=== PATIENT | female | born 1945 | race Caucasian/White ===

== ENCOUNTER 2020-12-31 14:53 | Outpatient (CLI) | payer MEDICARE, SELFPAY ==
--- NOTE | 2020-12-31 15:10 | XR_ITS ---
WS: [id number] SCREENING DEXA SCAN [email or web address] CLINICAL INFORMATION: OSTEOPOROSIS COMPARISON: None. FINDINGS: The L1-L4 bone mineral density measures . This corresponds to a T score score of and Z score of . Left femoral neck bone mineral density measures 0.567 g/cm2. This corresponds to a T score of -3.5 an d Z score of -1.1. Right femoral neck bone mineral density measures 0.550 g/cm2. This corresponds to a T score -3.6of an d Z score of -1.3. Mean femoral neck bone mineral density measures 0.559 g/cm2. This corresponds to a T score of -3.6 an d Z score of -1.2. XR/XR DEXA axial skeleton* [id number] IMPRESSION: Osteoporosis Patient's FRAX calculated 10 year probability for major osteoporotic fracture i s 59.4 % and osteoporotic hip fracture is 49.8%.
== END 2020-12-31 14:54 | disposition home or self-care (01) ==
LOC: RADWPI 15:05
PROVIDERS: PCP Physician Assistant; Visit Provider Physician Assistant
DX: M81.0 Age-related osteoporosis without current pathological fracture (principal)
CPT/HCPCS: 77080

== ENCOUNTER 2021-01-27 13:17 | Emergency (ER) | payer MEDICARE, SELFPAY ==
[2021-01-27 13:37] VITALS: BP 128/65; PULSE 68; RESP 17; TEMP 36.7; O2SAT 95; BMI 18.1
--- NOTE | 2021-01-27 13:40 | PC.NURSE ---
patient voices that she does not want an IV
--- NOTE | 2021-01-27 14:00 | CT_ITS ---
WS: [id number] CT ABDOMEN AND PELVIS NONCONTRAST HISTORY: possible stone/ has stent TECHNIQUE: Imaging performed through the abdomen and pelvis. Coronal and sagittal reformats are submi tted. All CT scans at [facility] use at least one of these dose optimization techniques: automated exposure control; mA and/or kV adjustment per patient size (includes targeted exams where d ose is matched to clinical indication); or iterative reconstruction. DLP: 418.56 mGy.cm COMPARISON: None available. Lower thorax: Minimal atelectasis at the lingula. Heart size is slightly enlarged. Small hiatal herni a. Liver: Normal size liver. No mass or bile duct dilatation. Gallbladder: Normal gallbladder. Pancreas: Atrophic pancreas. Extensive calcifications adjacent to the pancreas are within the splenic artery. Spleen: Normal. Adrenal glands: Normal. No mass. Right kidney: Mild atrophy of the RIGHT kidney with extensive vascular calcifications. No obstruction . Left kidney: Enlarged LEFT kidney with extensive vascular calcifications. Patient has a LEFT ureteral stent which does appear to be in good position. Despite the stent there is mild dilatation of the LE FT renal pelvis and LEFT ureter. Adjacent to the distal LEFT ureter is as 5 mm calcific density which is probably a stone in the adjacent ureter. Aorta: Extensive atherosclerotic plaque within the aorta and mesenteric arteries. There is evidence f or prior stenting of the aorta and iliac arteries. No free fluid, intraperitoneal air or significant lymphadenopathy. GI tract: Normal appendix. No GI tract obstruction or diverticulosis. Abdominal wall: Mild anasarca. Prior mesh placement in the anterior abdominal wall. Pelvis: Moderately distended urinary bladder. There is a LEFT ureteral stent coiled in the urinary bl adder. Osseous structures: T12 and L3 compression fractures without retropulsion. L3 compression fracture by 10% and T12 50%. CT/CT kidney stone [id number] IMPRESSION: 1. Mild perinephric stranding surrounding the LEFT kidney with a LEFT ureteral stent in place. There is very mild dilatation of the LEFT renal pelvis. 2. 15 mm calcification in the distal LEFT ureter adjacent to the stent. 3. Extensive vascular calcifications throughout the abdomen and pelvis. 4. Acute appearing T12 and L2 compression fractures without retropulsion.
--- NOTE | 2021-01-27 14:01 | XR_ITS ---
WS: [id number] Portable AP upright chest, 01/27/2021 Clinical Data: wheezing Comparison: None. Findings: No nodules, masses or effusions are seen. The heart is normal. The pulmonary vascularity is not increased. No pneumonia or pneumothorax is seen. Diaphragms are flattened. The aortic arch and d escending thoracic aorta show calcification and tortuosity. There is a left ureteral stent overlying the kidney. XR/XR chest 1V portable [id number] Impression: Atherosclerosis and hyperinflation.
--- NOTE | 2021-01-27 14:01 | ED_ITS ---
HPI - Female Genitourinary General: Chief complaint: Urogenital-Female Stated complaint: high b/p overly tired poss uti Time Seen by Provider: 01/27/21 13:51 History of Present Illness: HPI Narrative: Just moved here from [place]. Had a stent placed kidney due to stones. Stones have not been removed yet because her daughter brought here because she was septic at that time. She has seen a validation scientist recently been put on blood pressure medication. Has just been feeling weak, possible bladder infection. Is a smoker and has continued to smoke. She has a history of 5 stents in her lower extremities help with blood flow. History of recent T12 compression fracture. Waiting into urologist. History of anemia since sepsis. Patient become septic in October and was admitted to the hospital last when the stone was found. Patient had the T12 compression fracture and prior to that and been on oxycodone and hydrocodone. Urologist that saw her after hospitalization said he did not want to take the stone out since she would be coming down here. Wanted urologist in this area to provide further care. Patient just finished antibiotic which we will know the name for on the of this past month. MD elicited complaint: UTI and other (Weakness) Onset (ago): week(s) Associated symptoms: Reports no associated symptoms; Deny abdominal pain, headache(s) or nausea Review of Systems Const: Reports: other (Weakness); Denies: fever(s), chills or body aches Eyes: Denies: change in vision or blurry vision ENMT: Denies: throat pain or nasal congestion Card: Reports: other (Lower extremity edema); Denies: chest pain or dyspnea on exertion Resp: Reports: wheezing (Chronic); Denies: dyspnea, productive cough or non-productive cough GI: Denies: abdominal pain, nausea or vomiting : Reports: difficulty voiding Musc: Denies: extremity pain Skin/Breast: Denies: rash Neuro: Denies: headache(s) Psych: Denies: anxiety or depression Cisco/Lymph: Denies: easy bruising PFS ED PFSH: Medical History (Updated 01/27/21 @ 16:41 by HORACE Shaikh) Coronary artery disease Hyperlipidemia Hypertension Family History Other Hypertension Social History Smoking and tobacco status: current every day smoker (0.5 pack per day) cigarettes Physical Exam Const: COMMON NORMALS: no acute distress, average body habitus and patient oriented x3 HENMT: COMMON NORMALS: normocephalic HEAD & SCALP: normal to inspection and normocephalic FACE & SINUS: normal facial exam Eye: COMMON NORMALS: conjunctivae normal GENERAL EYE: appearance normal, both eyes and all related structures (Dark circles under both eyes) CONJUNCTIVA: Yes conjunctivae normal Neck/C-Spine: COMMON NORMALS: no JVD Chest: COMMONS NORMALS: normal inspection of the chest Resp: COMMON NORMALS: normal respiratory effort EFFORT & INSPECTION: Yes able to speak in complete sentences AUSCULTATION: wheezes throughout and diminished lung sounds diffuse Cardio: COMMON NORMALS: no JVD, regular rate and regular rhythm RATE: regular rate RHYTHM: regular rhythm OTHER: 2+ pitting edema pretibial and feet GI: COMMON NORMALS: Normal to inspection, nondistended, normoactive bowel sounds present Extremity: COMMON NORMALS: normal to inspection and full ROM Neuro: COMMON NORMALS: patient oriented x3 Skin: COMMON NORMALS: negative for turgor normal NARRATIVE SKIN EXAM: Poor turgor GENERAL SKIN EXAM: decreased turgor Course Vital Signs: Vital signs: Vital Signs Temperature 98.0 F 01/27/21 13:37 Pulse Rate 67 01/27/21 16:00 Respiratory Rate 16 01/27/21 16:00 Blood Pressure 163/65 01/27/21 16:00 Pulse Oximetry 95 01/27/21 16:00 MDM - Female [facility] Narrative: Medical decision making narrative: Spoke with Dr. Robert. Went over lab and radiology and patient signs symptoms and past history. Spoke with Dr. Villasenor through Dr. Toscano about radiology report. Called Dr. Solitario and spoke to him about patient's history symptoms and labs and he reviewed the CT report. We decided that patient could be treated as an outpatient basis due to not being in septic at this time no nausea mild fever chills. Have a patient take antibiotic after receiving antibiotic here in the ER and follow-up at [facility]. Patient agreeable to plan. I urged the daughter and her to follow-up here if any worsening symptoms before Dr. Solitario appointment. Encourage her to take medication as directed and drink plenty of fluids. And also try to sign release to get old records from previous hospital visit. Lab Data: Labs: Lab Results 01/27/21 01/27/21 01/27/21 Range/Units 14:05 14:05 14:42 WBC 8.6 (4.0-10.0) 10^3/ uL RBC 3.11 L (4.1-5.3) 10^6/u L Hgb 9.4 L (11.5-15.3) g/dL Hct 30.6 L (37.0-47.0) % MCV 98.4 (81-99) fl MCH 30.2 (28.0-34.0) pg MCHC 30.7 (30.0-36.0) g/dL RDW 15.3 H (12.1-15.1) % Plt Count 259 (130-400) 10^3/c mm MPV 8.8 (7.4-10.4) fL Neut % (Auto) 57.9 % Lymph % (Auto) 24.0 % Loving % (Auto) 7.2 % Eos % (Auto) 10.0 % Baso % (Auto) 0.6 % Neut # (Auto) 4.96 (1.8-7.7) 10^3/u L Lymph # (Auto) 2.1 (0.8-4.8) 10^3/u L Loving # (Auto) 0.6 (0.2-0.9) 10^3/u L Eos # (Auto) 0.9 H (0.0-0.8) 10^3/u L Baso # (Auto) 0.1 (0.0-0.1) 10^3/u L Nucleated RBC % (a uto) 0 % Nucleated RBCs # 0.0 /100WBC Sodium 133 L (136-145) mmol/L Potassium 4.6 (3.5-5.1) mmol/L Chloride 105 (98-107) mmol/L Carbon Dioxide 18 L (22-29) mmol/L Anion Gap 14.6 (5-19) BUN 14 (8-23) mg/dL Creatinine 0.8 (0.5-0.9) mg/dL GFR Calculation Not Reportable Glucose 195 H (65-115) mg/dL Calculated Osmolal ity 282 L (285-295) mOsm/k g Calcium 9.2 (8.5-10.5) mg/dL Urine Color Yellow (Yellow) Urine Appearance Hazy A (CLEAR) Urine pH 5 (5-7) Ur Specific Gravit y 1.015 (1.005-1.030) Urine Protein 1+ H (Negative) Urine Glucose (UA) Trace H (Normal) Urine Ketones Negative (Negative) Urine Blood 3+ H (Negative) Urine Nitrate Positive H (Negative) Urine Bilirubin Neg (Negative) Urine Urobilinogen Norm (Negative) mg/dL Ur Leukocyte Gillian ase 2+ H (Negative) Urine RBC >100 H (0-2) /hpf Urine WBC Too numerous to c nt H (0-5) /hpf Ur Squamous Epith Cells None (0-5) /hpf Amorphous Sediment Not Reportable Urine Bacteria 2+ H (NONE) /hpf Discharge Plan Discharge Patient Disposition: Home Clinical Impression: Left ureteral stone, PAD (peripheral artery disease), Acute UTI Anemia Qualifiers: Anemia type: unspecified type Qualified Code(s): D64.9 - Anemia, unspecified Compression fracture of T12 vertebra Qualifiers: Encounter type: sequela Qualified Code(s): S22.080S - Wedge compression fracture of T11-T12 vertebra, sequela Closed compression fracture of L2 vertebra Qualifiers: Encounter type: sequela Qualified Code(s): S32.020S - Wedge compression fracture of second lumbar vertebra, sequela Condition: Stable Prescriptions: New ferrous gluconate 324 mg (38 mg iron) tablet 324 mg PO DAILY Qty: 30 RF: 0 Bactrim DS 800-160 mg tablet 1 tab PO BID 7 Days Qty: 14 RF: 0 No Action trazodone 100 mg tablet 100 mg PO BEDTIME RF: 0 cholecalciferol (vitamin D3) 50 mcg (2,000 unit) capsule 50 mcg PO QAM RF: 0 atorvastatin 40 mg tablet 40 mg PO QAM RF: 0 mirtazapine 15 mg tablet 15 mg PO BEDTIME RF: 0 aspirin [Adult Aspirin Regimen] 81 mg tablet,delayed release (DR/EC) 81 mg PO QAM RF: 0 pantoprazole 40 mg tablet,delayed release (DR/EC) 40 mg PO DAILY RF: 0 pramipexole 0.25 mg tablet 0.25 mg PO TID RF: 0 magnesium chloride 64 mg tablet,delayed release (DR/EC) 64 mg PO QAM RF: 0 potassium chloride 10 mEq capsule, extended release 10 meq PO DAILY PRN (Reason: TAKES WITH LASIX) RF: 0 lisinopril 20 mg tablet 20 mg PO QAM RF: 0 omeprazole 40 mg Capsule,Delayed Release(Dr/Ec) 40 mg PO DAILY PRN (Reason: Acid Reflux) RF: 0 Lasix 20 mg Tablet 20 - 40 mg PO DAILY PRN (Reason: SWELLING) RF: 0 metoprolol succinate 25 mg tablet extended release 24 hr 25 mg PO QAM RF: 0 amlodipine 5 mg tablet 5 mg PO QAM RF: 0 Discharge Orders: Discharge ED (Routine); Ordered 01/27/21 Ordered By: Antwan Larios Referrals: Marlyn Fisher PA [Primary Care Provider] - Discharge Diet: Usual diet Discharge Activity: Increase activity as tolerated Patient Instructions: Kidney Stones (ED), Urinary Tract Infection in Women (ED), Vertebral Compression Fracture (ED) Activity Restrictions/Additional Instructions: Follow-up with medical provider as directed. Take medications as prescribed. Return to the ER or your medical provider if condition worsens. Please read and understand discharge instructions. If any questions ask please. Establish primary care provider here in town. Make sure you drink plenty of fluids. Take laxative and fiber along with your iron. Hospital will contact you with an appointment for Dr. Solitario's office to [facility] next week if you do not hear back from the hospital by Monday please call Dr. Solitario's office make sure you get appointment. If worsening symptoms please return here Coding Level of Care Code ED Crime Scene Technician for Izabela Fwd Exam Comprehensive
[2021-01-27 14:14] LABS: Basophils # 0.1 10^3/uL (0.0-0.1); Basophils % 0.6 %; Eosinophils # 0.9 10^3/uL (0.0-0.8); Hematocrit 30.6 % (37.0-47.0); Hemoglobin 9.4 g/dL (11.5-15.3); Lymphocytes # 2.1 10^3/uL (0.8-4.8); Mean Corpuscular HGB Conc 30.7 g/dL (30.0-36.0); Mean Corpuscular Hemoglobin 30.2 pg (28.0-34.0); Mean Corpuscular Volume 98.4 fl (81-99); Mean Platelet Volume 8.8 fL (7.4-10.4); Monocytes # 0.6 10^3/uL (0.2-0.9); Monocytes % 7.2 %; Neutrophils # 4.96 10^3/uL (1.8-7.7); Neutrophils % 57.9 %; Nucleated Red Blood Cells % 0 %; Platelet Count 259 10^3/cmm (130-400); Red Blood Count 3.11 10^6/uL (4.1-5.3); Red Cell Distribution Width 15.3 % (12.1-15.1); White Blood Count 8.6 10^3/uL (4.0-10.0)
--- NOTE | 2021-01-27 14:45 | PC.PHAR ---
PT STATES SHE AND HER DAUGHTER TAKE CARE OF HER MEDICATIONS-PT HAS A RX FOR LISINOPRIL 40MG DAILY WRITTEN ON 01/12/[address] ZAMORA PT STATES SHE IS ONLY TAKING 20MG DAILY-PT STATES SHE HAS LASIX AND KCL THAT SHE TAKES PRN BUT HASNT TAKEN FOR A WHILE-RX WRITTEN ON 12/23/20 90DS. FOR PANTOPRAZOLE 40MG DAILY PT STATES SHE TAKES OMEPRAZOLE 40MG DAILY PRN STATES ITS AN OLD RX FROM [place]
[2021-01-27 14:46] VITALS: BP 166/61; PULSE 68; RESP 18; O2SAT 98
[2021-01-27 14:53] LABS: Anion Gap 14.6 (5-19); Blood Urea Nitrogen 14 mg/dL (8-23); Calcium 9.2 mg/dL (8.5-10.5); Carbon Dioxide 18 mmol/L (22-29); Chloride 105 mmol/L (98-107); Glucose 195 mg/dL (65-115); Osmolality Calculated 282 mOsm/kg (285-295); Potassium 4.6 mmol/L (3.5-5.1); Sodium 133 mmol/L (136-145)
[2021-01-27 15:48] LABS: Add Urine Microscopic? YES; Bilirubin Urine Neg (Negative); Blood Urine 3+ (Negative); Glucose Urine UA Trace (Normal); Ketones Urine Negative (Negative); Leukocyte Esterase Urine 2+ (Negative); Nitrate Urine Positive (Negative); Protein Urine 1+ (Negative); Specific Gravity, Urine 1.015 (1.005-1.030); Urine Appearance Hazy (CLEAR); Urine Color Yellow (Yellow); Urobilinogen Urine Norm (Negative); pH Urine 5 (5-7)
[2021-01-27 15:51] LABS: Add Urine Culture? Yes; Bacteria Urine 2+ /hpf; RBC Urine >100 /hpf (0-2); WBC Urine TOO NUMEROUS TO CNT /hpf (0-5)
[2021-01-27 16:00] VITALS: BP 163/65; PULSE 67; RESP 16; O2SAT 95
[2021-01-27] MEDS: cefTRIAXone 1,000 MG in lidocaine 1% 2.1 ML 1 MG IM (16:53)
[2021-01-27 17:32] VITALS: BP 160/61; PULSE 68; O2SAT 92
--- NOTE | 2021-02-03 11:26 | DCPLANNER ---
infrastructure manager had message to schedule a follow up appointment for patient with Dr. Solitario. infrastructure manager called the office of Dr. Solitario, spoke with Yvette, gave clinic patients information. infrastructure manager was told that patients information would be printed and reviewed. Clinic will call patient with appointment information.
--- NOTE | 2021-02-05 15:03 | DCPLANNER ---
Patient had a follow up appointment scheduled for 02.04.[address] Solitario - patient did attend appointment.
== END 2021-01-27 17:33 | disposition home or self-care (01) ==
PROVIDERS: Emergency Provider Nurse Practitioner Family; PCP Physician Assistant
DX: N39.0 Urinary tract infection, site not specified (principal); N20.1 Calculus of ureter; D64.9 Anemia, unspecified; I73.9 Peripheral vascular disease, unspecified; S22.080A Wedge compression fracture of T11-T12 vertebra, initial encounter for closed fracture; S32.020A Wedge compression fracture of second lumbar vertebra, initial encounter for closed fracture; Z79.82 Long term (current) use of aspirin; I25.10 Atherosclerotic heart disease of native coronary artery without angina pectoris; E78.5 Hyperlipidemia, unspecified; I10 Essential (primary) hypertension; F17.210 Nicotine dependence, cigarettes, uncomplicated; X58.XXXA Exposure to other specified factors, initial encounter
CPT/HCPCS: 71045; 74176; 80048; 81001; 85025; 87077; 87086; 87186; 96365; 96372; 99284; J0696

== ENCOUNTER 2021-02-04 07:13 | Outpatient (CLI) | payer MEDICARE, SELFPAY ==
--- NOTE | 2021-02-04 07:00 | XR_ITS ---
WS: [id number] KUB, AP view, 02/04/2021 Clinical Data: URETERAL STONE Comparison: CT abdomen and pelvis, 01/27/2021. Findings: There is a left ureteral stent in good position. There is a possible left UVJ calcification adjacent to the distal stent.There are calcifications overlying the left kidney. An aorto iliofemoral stent is in position. There are numerous surgical clips in the central abdomen. There is fecal material throu ghout the colon. XR/XR KUB [id number] Impression: 1. Left ureteral stent with probable distal left UVJ calculus adjacent to the s tent. 2. Numerous calcifications overlie left kidney. 3. An aortofemoral stent graft is in position.
== END 2021-02-04 07:14 | disposition home or self-care (01) ==
PROVIDERS: PCP Physician Assistant; Visit Provider Urology
DX: N20.1 Calculus of ureter (principal)
CPT/HCPCS: 74018; 81003

== ENCOUNTER → 2021-02-18 11:55 | Outpatient (BNVA) | payer MEDICARE, SELFPAY | PROVIDERS: PCP Physician Assistant; Visit Provider Urology | DX: N39.0 Urinary tract infection, site not specified (principal); Z96.0 Presence of urogenital implants; Z20.822 Contact with and (suspected) exposure to COVID-19 | CPT/HCPCS: 81003; 87077; 87086; 87184; 87635 ==

== ENCOUNTER 2021-02-25 12:54 | Day surgery (SDC) | payer MEDICARE, SELFPAY ==
[2021-02-24 12:03] VITALS: BMI 17.7
[2021-02-25] VITALS (8 sets, daily range): BP systolic 120–164; BP diastolic 44–80; PULSE 60–77; RESP 15–19; TEMP 36.5–36.6; O2SAT 91–98
--- NOTE | 2021-02-25 | SCC_ITS ---
Procedure Done: 1. Cystoscopy, removal of left ureter stent 2. Left ureteroscopy, laser lithotripsy, no stent replacement 43.9 seconds of fluoroscopic guidance, for a cumulative dose of 4.71 mGy, was provided to Dr. Solitario by the radiology department. C-arm images of the abdomen were saved for the patient's permanent record. [facility]
--- NOTE | 2021-02-25 12:50 | XR_ITS ---
WS: [id number] Exam: XR KUB [id number] Date/Time of Exam: 02/25/2021 12:50 PM Reason For Exam: Preop left ureteroscopy Compared to previous study 02/04/2021. No bowel obstruction or free air. A left ureteral stent is in place. The superior aspect of the stent appears to be in the region of the left kidney however the lower segment of the stent is out of the [id number]-vlle. A bifurcated lower abdominal aortic graft is in place. Signs of previous ventral herni a repair. No sign of organ enlargement. Nonspecific abdominal calcifications seen. XR/XR KUB [id number] IMPRESSION: 1. Left ureteral stent in place as indicated above. 2. Postoperative changes of the abdomen. No acute abdominal finding.
[2021-02-25] MEDS: sodium chloride 0.9% 1,000 ML 30 ML IV (13:45)
[2021-02-25 14:15] LABS: Anion Gap 14.1 (5-19); Blood Urea Nitrogen 15 mg/dL (8-23); Calcium 9.6 mg/dL (8.5-10.5); Carbon Dioxide 21 mmol/L (22-29); Chloride 102 mmol/L (98-107); Creatinine Clr Calc Pharmacy 36.2264; Glucose 91 mg/dL (65-115); Osmolality Calculated 274 mOsm/kg (285-295); Potassium 5.1 mmol/L (3.5-5.1); Sodium 132 mmol/L (136-145)
--- NOTE | 2021-02-25 14:41 | ANES.PREANE2 ---
Pre-Anesthetic Assessment Pre-Anesthetic Assessment: Height/Weight: Height 1.45 m Weight 37.195 kg Preop Diagnosis: Retained ureteral stent, left ureteral stone Proposed Procedure: Operation Date: 02/25/21 14:35 Proposed Procedures p Cystoscopy 41390 [id number] 38247 N20.1(Not Applicable) - MD homer Talamantes Ureteral Stent Removal(Not Applicable) - MD homer Talamantes Retrograde Pyelogram(Not Applicable) - MD homer Talamantes Ureteroscopy(Not Applicable) - MD homer Talamantes Laser Lithotripsy(Not Applicable) - MD homer Talamantes Ureteral Stent Placement(Not Applicable) - Finn Solitario MD Was Beta Christine taken within 24 hours: Yes Was Clonidine taken within 24 hours: N/A Last intake: Intake Last Liquid Date 02/24/21 Last Liquid Time 08:50 Last Solid Date 02/24/21 Last Solid Time 23:00 Social: Social History: No alcohol and No tobacco Exam: Pre-Anes Outpt Exam: alert, oriented x 3 and clear to auscultation bilaterally Airway: Submandibular: WNL Cervical ROM: WNL MP: 1 History/ROS: No significant complaints Pulmonary: Pulmonary: None reported CV/HEM: CV/HEM: CAD, HTN and [place] Comments: Stents placed approx 6 years ago, unknown how many or which arteries : Comments: Renal Stones/ current ureteral stent Hepatic: Hepatic: None reported GI: GI: None reported Metabolic: Metabolic: Hyperlipidemia Musc/skel: Musc/skel: None reported Neuropsych: Neuropsych: None reported Anesthetic Plan: ASA status: 2 Anesthesia: Choice PFSH Anesthesia PFSH: Medical History (Updated 02/19/21 @ 05:21 by Finn Solitario MD) Coronary artery disease History of abdominal hernia Hyperlipidemia Hypertension Urolithiasis UTI (urinary tract infection) Surgical History (Updated 02/19/21 @ 05:21 by Finn Solitario MD) Hx of appendectomy Hx of endarterectomy Hx of heart artery stent Hx of hysterectomy Family History Mother , IN HER 90'S. LYMPH NODE CANCER Diabetes Cancer Other CAD (coronary artery disease) Hypertension Social History Alcohol intake: former Marital status: Current occupational status: retired History of recent travel: No Data Anesthesia CBC & Chem 7: 02/25/21 13:45 Other Labs: Laboratory Results - last 48 hr 02/25/21 13:45 Sodium 132 L Potassium 5.1 Chloride 102 Carbon Dioxide 21 L Anion Gap 14.1 BUN 15 Creatinine 0.8 GFR Calculation Not Reportable Glucose 91 Calculated Osmolality 274 L Calcium 9.6 Cardiac Studies: No Data to Display
--- NOTE | 2021-02-25 14:52 | W.PM.OPSUD ---
Surgery/Procedure H&P Update DATE OF PROCEDURE: February 25, 2021 DATE H&P PERFORMED: 02/18/21 H&P UPDATE INFORMATION: I have reviewed H&P completed within last 30 days, I have examined patient prior to procedure, No changes to prior documentation and H&P is in [facility] EMR on date indicated PREOP DIAGNOSIS: Retained ureteral stent, left ureteral stone PLANNED PROCEDURE: Operation Date: 02/25/21 14:35 Proposed Procedures p Cystoscopy 51615 [id number] N20.1(Not Applicable) - Finn Solitario MD s Ureteral Stent Removal(Not Applicable) - MD homer Talamantes Retrograde Pyelogram(Not Applicable) - MD homer Talamantes Ureteroscopy(Not Applicable) - MD homer Talamantes Laser Lithotripsy(Not Applicable) - MD homer Talamantes Ureteral Stent Placement(Not Applicable) - Finn Solitario MD
[2021-02-25] MEDS: piperacillin-tazobactam 3.375 GM in sodium chloride 0.9% (plus) 50 ML IV (14:55)
--- NOTE | 2021-02-25 15:18 | SC_ITS ---
WS: [id number] Exam: C-arm FL for Urology Date/Time of Exam: 02/25/2021 3:18 PM Reason For Exam: SURGERY A single intraoperative AP C-arm image of the upper abdomen is submitted for evaluation. A left-sided pigtail ureteral catheter is visualized. A second opaque line also courses along the route of the le ft ureter and may represent a guidewire or ureteroscope. A bifurcated abdominal aortic graft is noted . There also appears to be mesh in the abdomen which may be secondary to previous hernia repair.
--- NOTE | 2021-02-25 15:44 | PM.OP ---
Operative Report Date of procedure: February 25, 2021 Pre-op Diagnosis: Retained ureteral stent, left ureteral stone Post-op diagnosis: same Procedure Done: 1. Cystoscopy, removal of left ureter stent 2. Left ureteroscopy, laser lithotripsy, no stent replacement Specimens removed/disposition: Stone fragments Pathology: Stone fragments Surgeon: Kassi Anesthesia: General Estimated blood loss: Minimal Urine output: Not measured Complications: None Findings: 1. Stent removed without difficulty 2. Stone was located about 3 cm to 4 cm above the left ureteral orifice, well fragmented with the laser, and multiple small fragments removed. 3. The condition of the ureter was good, nicely dilated, and therefore no stent was left indwelling. Condition: stable Disposition: PACU Brief History: Zoe is a very pleasant 75-year-old white female recently moved from [place] to this area to join her family. Shortly before her departure and I think November she was diagnosed with obstructive pyelonephritis and sepsis and underwent an emergency stenting the bypass of a fairly large left distal ureteral stone. She has recovered well from that procedure and infection is being admitted now to outpatient surgery for definitive treatment of the stone and stent removal if possible. Procedure: After routine preoperative evaluation examination and obtaining of informed consent she was taken to the operating suite on 02/25/2021 where general anesthesia was administered without difficulty after appropriate timeout was performed, SCDs confirmed to be functioning, preoperative antibiotics administered, beta-mike protocol confirmed. Prepped and draped in the usual sterile fashion in dorsolithotomy position paying careful attention to avoiding pressure points. 21 Ivorian cystoscope with 30 degree lens was introduced into the urethral meatus and advanced into the bladder without difficulty. The bladder was systematically examined. There was minimal inflammatory changes related to the stent which was in the expected position with minimal encrustation. Flexible tip guidewire was then easily advanced up the left ureter bypassing the area of the expected stone and curling in the upper pole calyx. The stent was then grasped with grasping forceps and withdrawn without difficulty. The proximal curl opened easily. The wire was secured to the drapes as a safety wire and a 7 Ivorian offset semirigid ureteroscope was advanced without difficulty up the left ureter all the way up to the renal pelvis. The ureter was nicely dilated. There was a stone in the expected position of the distal ureter but no other findings of concern. The stone was then fragmented with a 365 ?m thulium superpulse laser fiber using the dusting technique. A parachute basket was utilized to remove the larger fragments. There remained some very minimal sand. The ureter was carefully inspected again after several passages of the basket and was intact with no significant trauma and because of the adequate dilation post stenting previously it was decided to not leave a stent in. The bladder was drained and the procedure was completed. She tolerated the procedure well without complications and was awakened in the operating room and returned to the recovery room. PLANS: 1. Anticipate discharge from outpatient surgery 2. Follow-up in 3 months with KUB 3. Complete antibiotics
== END 2021-02-25 17:00 | disposition home or self-care (01) ==
PROVIDERS: PCP Physician Assistant; Visit Provider Urology
PROC: 0TJB8ZZ Inspection of Bladder, Via Natural or Artificial Opening Endoscopic (ICD-10-PCS; CPT 52000; principal; 2021-02-25 14:30)
PROC: (CPT 52310; 2021-02-25 14:30)
PROC: 0TJ98ZZ Inspection of Ureter, Via Natural or Artificial Opening Endoscopic (ICD-10-PCS; CPT 52351; 2021-02-25 14:30)
PROC: (CPT 52352; 2021-02-25 14:30)
DX: N20.1 Calculus of ureter (principal); Z96.0 Presence of urogenital implants; I25.10 Atherosclerotic heart disease of native coronary artery without angina pectoris; I10 Essential (primary) hypertension; I25.2 Old myocardial infarction; Z95.5 Presence of coronary angioplasty implant and graft; E78.5 Hyperlipidemia, unspecified; Z79.82 Long term (current) use of aspirin; N39.0 Urinary tract infection, site not specified
CPT/HCPCS: 52352; 74018; 76000; 80048; 82365; 88300; J1100; J2405; J2543; J2704; J2710; J3490; J7030

== ENCOUNTER 2021-04-28 13:30 | Outpatient (CLI) | payer MEDICARE, SELFPAY ==
[2021-04-28 14:22] VITALS: BP 109/64; PULSE 68; RESP 18; TEMP 36.6; O2SAT 96
[2021-04-28] MEDS: romosozumab-aqqg 210 mg/2.34 mL syr SUBCUT (14:28)
[2021-04-28 14:45] VITALS: BP 111/74; PULSE 71; RESP 18; TEMP 36.8; O2SAT 95
== END 2021-04-28 13:31 | disposition home or self-care (01) ==
LOC: ONCMED 13:33
PROVIDERS: PCP Physician Assistant; Referring Provider Physician Assistant; Visit Provider Physician Assistant
DX: M81.0 Age-related osteoporosis without current pathological fracture (principal)
CPT/HCPCS: 96372; J3590

== ENCOUNTER 2021-06-01 08:23 | Outpatient (CLI) | payer MEDICARE, SELFPAY ==
--- NOTE | 2021-06-01 08:30 | XRR_ITS ---
PROCEDURE INFORMATION: Exam: XR Abdomen Exam date and time: 06/01/2021 8:30 AM Age: 75 years old Clinical indication: Condition or disease; Kidney or ureter condition; Calculus (stone) in kidney; Additional info: Urolithiasis TECHNIQUE: Imaging protocol: XR of the abdomen. Views: Frontal supine view of the abdomen. 1 View. COMPARISON: CR XR KUB [id number] 02/25/2021 1:10 PM FINDINGS: Tubes, catheters and devices: Interval removal of left ureteral stent. Gastrointestinal tract: No bowel dilation. Moderate colonic stool burden. Organs: No evident renal stones, but limited due to overlying bowel gas and stool. Vasculature: Bifurcated aorto bi-iliac stent noted. Bones/joints: Unremarkable. Soft tissues: Sequela of ventral hernia repair noted. XR/XR KUB [id number] IMPRESSION: No evident renal stones, but limited by overlying bowel gas and stool. Interval removal left ureteral stent.
== END 2021-06-01 08:24 | disposition home or self-care (01) ==
LOC: RAD 08:27
PROVIDERS: PCP Physician Assistant; Visit Provider Urology
DX: Z46.6 Encounter for fitting and adjustment of urinary device (principal); N20.9 Urinary calculus, unspecified
CPT/HCPCS: 74018; 81003

== ENCOUNTER 2021-06-07 13:13 | Outpatient (CLI) | payer MEDICARE, SELFPAY ==
[2021-06-07 14:01] LABS: Albumin Level 3.3 g/dL (3.5-5.2); Calcium 9.4 mg/dL (8.5-10.5)
[2021-06-07 14:17] LABS: 25 Hydroxy Vitamin D 58 ng/mL (30-100)
== END 2021-06-07 13:14 | disposition home or self-care (01) ==
PROVIDERS: PCP Physician Assistant; Visit Provider Physician Assistant
DX: M81.0 Age-related osteoporosis without current pathological fracture (principal); E55.9 Vitamin D deficiency, unspecified
CPT/HCPCS: 36415; 82040; 82306; 82310; 82565

== ENCOUNTER 2021-06-08 13:11 | Outpatient (CLI) | payer MEDICARE, SELFPAY ==
[2021-06-08 13:32] VITALS: BP 137/61; PULSE 66; RESP 18; TEMP 37.3; O2SAT 97
[2021-06-08] MEDS: romosozumab-aqqg 210 mg/2.34 mL syr SUBCUT (13:45)
[2021-06-08 13:59] VITALS: BP 129/58; PULSE 65; RESP 18; TEMP 36.9; O2SAT 99
== END 2021-06-08 13:12 | disposition home or self-care (01) ==
LOC: ONCMED 13:18
PROVIDERS: PCP Physician Assistant; Visit Provider Internal Medicine Medical Oncology
DX: M81.0 Age-related osteoporosis without current pathological fracture (principal)
CPT/HCPCS: 96372; J3590

== ENCOUNTER 2021-07-05 06:00 | Outpatient (RCR) | payer MEDICARE, SELFPAY | END 2021-07-26 23:59 | disposition home or self-care (01) | LOC: SPT 06:00 | PROVIDERS: PCP Physician Assistant; Referring Provider General Practice; Visit Provider General Practice | DX: G89.4 Chronic pain syndrome (principal); M62.81 Muscle weakness (generalized) | CPT/HCPCS: 97110; 97161 ==

== ENCOUNTER 2021-07-06 13:58 | Outpatient (CLI) | payer MEDICARE, SELFPAY ==
[2021-07-06 14:14] VITALS: BP 109/62; PULSE 74; RESP 18; TEMP 36.5; O2SAT 98
[2021-07-06] MEDS: romosozumab-aqqg 210 mg/2.34 mL syr SUBCUT (14:18)
[2021-07-06 14:31] VITALS: BP 129/72; PULSE 73; RESP 18; TEMP 36.7; O2SAT 96
== END 2021-07-06 13:59 | disposition home or self-care (01) ==
LOC: ONCMED 14:03
PROVIDERS: PCP Physician Assistant; Referring Provider Physician Assistant; Visit Provider Physician Assistant
DX: M81.0 Age-related osteoporosis without current pathological fracture (principal); Z79.899 Other long term (current) drug therapy
CPT/HCPCS: 96372; J3590

== ENCOUNTER 2021-07-27 06:00 | Outpatient (RCR) | payer MEDICARE, SELFPAY | END 2021-08-19 23:59 | disposition home or self-care (01) | LOC: SPT 06:00 | PROVIDERS: PCP Physician Assistant; Referring Provider General Practice; Visit Provider General Practice | DX: G89.4 Chronic pain syndrome (principal); M51.36 Other intervertebral disc degeneration, lumbar region; M46.1 Sacroiliitis, not elsewhere classified | CPT/HCPCS: 97110; 97116 ==

== ENCOUNTER 2021-08-03 14:05 | Outpatient (CLI) | payer MEDICARE, SELFPAY ==
[2021-08-03 14:34] VITALS: BP 163/65; PULSE 82; RESP 18; TEMP 36.8; O2SAT 95
[2021-08-03] MEDS: romosozumab-aqqg 210 mg/2.34 mL syr SUBCUT (14:38)
== END 2021-08-03 14:06 | disposition home or self-care (01) ==
PROVIDERS: PCP Physician Assistant; Referring Provider Physician Assistant; Visit Provider Internal Medicine Medical Oncology
DX: M81.0 Age-related osteoporosis without current pathological fracture (principal); Z79.899 Other long term (current) drug therapy
CPT/HCPCS: 96372; J3590

== ENCOUNTER 2021-08-25 08:24 | Outpatient (CLI) | payer MEDICARE, SELFPAY ==
--- NOTE | 2021-08-25 08:45 | USCV_ITS ---
Elder Zoe Age: 75 Gender: F : 1945 Exam Date: 08/25/2021 09:10 Ordering Phys: Tony Rebolledo M.D ([email or web address]) Technologist: Jill Stephens [place] [facility] [place]: Occlusion and stenosis of bilateral carotid arteries Risk Factors: Previous Vascular Surgery: R CEA Right Brachial BP: / Left Brachial BP: / Right Left Velocity (cm/s) Spectral Plaque Velocity (cm/s) Spectral Plaque Syst/Diast Broadening Syst/Diast Broadening 62.90/ 8.50 Prox CCA 77.20 / 15.40 83.10/ 10.10 Mid CCA 81.60 / 11.00 96.60/ 15.30 Distal CCA 78.30 / 7.70 36.60/ 6.90 Prox ICA 183.60/ 29.35 88.50/ 17.50 Mid ICA 200.70/ 45.40 49.80/ 11.50 Distal ICA 179.80/ 26.50 143.10 ECA 165.50 1.06 ICA/CCA 2.46 Antegrade Vertebral Antegrade 80.30/ 16.20 cm/s 50.70/ 13.20 cm/s Bi Subclavian Bi 107.6 160.1 0 0 CONCLUSIONS Right ICA stenosis <50%. Prior Right CEA, no recurrent stenosis. Moderate atheromatous plaque right carotid bulb/ICA and CCA. Left ICA stenosis 50-69%. Moderate atheromatous plaque left carotid bulb/ICA and CCA Normal antegrade Doppler flow noted in the right vertebral artery. Normal antegrade Doppler flow noted in the left vertebral artery. Robel Jauregui MD (Electronically Signed) Final Date: 25 August 2021 10:26 S
--- NOTE | 2021-08-25 09:30 | USCV_ITS ---
Elder Zoe Age: 75 Gender: F : 1945 Exam Date: 08/25/2021 08:40 Ordering Phys: Tony Rebolledo M.D ([email or web address]) Technologist: Jill Stephens Exam Location: [facility] – [place] Indication: Cardiac Murmur BP: 144 / 58 HR: 60 Rhythm: Sinus Technical Quality: Adequate MEASUREMENTS (Male / Female) Normal Values 2D ECHO LV Diastolic Diameter PLAX 4.5 cm 4.2 - 5.9 / 3.9 - 5.3 cm LV Systolic Diameter PLAX 2.9 cm IVS Diastolic Thickness 0.8 cm 0.6 - 1.0 / 0.6 - 0.9 cm IVS Systolic Thickness 1.6 cm LVPW Diastolic Thickness 1.3 cm 0.6 - 1.0 / 0.6 - 0.9 cm LVPW Systolic Thickness 1.7 cm RV Chamber Size 2.6 cm LVOT Diameter 2.0 cm LV Ejection Fraction 2D Teich 64.0 % LA Diameter 3.1 cm LA Width 3.3 cm LA Height 3.6 cm RA Width 2.8 cm RA Height 3.1 cm Aorta at Sinotubular Diameter 2.0 cm M-MODE Aortic Annulus Diameter 2.7 cm LA Ao Ratio MM 1.1 MV E Point Septal Separation 0.6 cm DOPPLER AV Peak Velocity 131.0 cm/s LVOT Peak Velocity 87.0 cm/s AV Area Cont Eq vti 1.4 cm squared AV Area Cont Eq pk 2.1 cm squared MV Area PHT 3.1 cm squared Mitral E to A Ratio 0.7 MV E' Velocity 38.5 cm/s Mitral E to MV E' Ratio 5.0 Mitral E to LV E' Lateral Ratio 7.0 Mitral E to LV E' Septal Ratio 3.9 TR Peak Velocity 248.0 cm/s TR Peak Gradient 24.6 mmHg TV Peak E Velocity 55.0 cm/s Right Atrial Pressure 3.0 mmHg Pulmonary Artery Systolic Pressu 27.6 mmHg PV Peak Velocity 87.0 cm/s RV Acceleration Time 0.1 s RV Ejection Time 0.2 s RV AcT/ET 0.4 FINDINGS Left Ventricle Normal left ventricular size. LV systolic function is normal with EF of 55-60%. No regional wall motion abnormalities. Grade 1 diastolic dysfunction Right Ventricle The right ventricle is normal in size and function. Right Atrium The right atrium is normal in size. Left Atrium The left atrium is normal in size. Mitral Valve Moderately thickened mitral valve. There is no mitral regurgitation. Aortic Valve Aortic valve is thickened and calcified with no stenosis. There is mild aortic regurgitation. Tricuspid Valve Structurally normal tricuspid valve without significant stenosis or regurgitation. Insufficient TR jet to calculate RVSP Pulmonic Valve Structurally normal pulmonic valve without significant stenosis. There is no pulmonic regurgitation. Pericardium Normal pericardium without effusion. Aorta Normal ascending aorta dimension. CONCLUSIONS LV systolic function is normal with EF of 55-60% Grade 1 diastolic dysfunction Moderately thickened mitral valve. Aortic valve is thickened and calcified with no stenosis. There is mild aortic regurgitation. No comparison studies are available Tony Rebolledo MD (Electronically Signed) Final Date: 27 August 2021 14:41 S
== END 2021-08-25 08:25 | disposition home or self-care (01) ==
LOC: RAD 08:27
PROVIDERS: PCP Physician Assistant; Visit Provider Internal Medicine
DX: I65.23 Occlusion and stenosis of bilateral carotid arteries (principal); Z98.890 Other specified postprocedural states; R01.1 Cardiac murmur, unspecified; I08.0 Rheumatic disorders of both mitral and aortic valves
CPT/HCPCS: 93306; 93880

== ENCOUNTER 2021-08-31 13:45 | Outpatient (CLI) | payer MEDICARE, SELFPAY ==
[2021-08-31 14:07] VITALS: BP 150/66; PULSE 64; RESP 18; TEMP 36.7; O2SAT 96
[2021-08-31] MEDS: romosozumab-aqqg 210 mg/2.34 mL syr SUBCUT (14:15)
[2021-08-31 14:27] VITALS: BP 154/76; PULSE 63; RESP 18; TEMP 36.8; O2SAT 96
== END 2021-08-31 13:46 | disposition home or self-care (01) ==
LOC: ONCMED 13:49
PROVIDERS: PCP Physician Assistant; Visit Provider Physician Assistant
DX: M81.0 Age-related osteoporosis without current pathological fracture (principal)
CPT/HCPCS: 96372; J3590

== ENCOUNTER 2021-09-28 14:02 | Outpatient (CLI) | payer MEDICARE, SELFPAY ==
[2021-09-28 14:16] VITALS: BP 106/61; PULSE 63; RESP 18; TEMP 36.8; O2SAT 94
[2021-09-28] MEDS: romosozumab-aqqg 210 mg/2.34 mL syr SUBCUT (14:27)
[2021-09-28 14:43] VITALS: BP 118/57; PULSE 63; RESP 18; TEMP 36.5; O2SAT 95
== END 2021-09-28 14:03 | disposition home or self-care (01) ==
PROVIDERS: PCP Physician Assistant; Referring Provider Physician Assistant; Visit Provider Physician Assistant
DX: M81.0 Age-related osteoporosis without current pathological fracture (principal)
CPT/HCPCS: 96372; J3590

== ENCOUNTER 2021-10-28 13:46 | Outpatient (CLI) | payer MEDICARE, SELFPAY ==
[2021-10-28 14:14] VITALS: BP 105/61; PULSE 58; RESP 18; TEMP 36.6; O2SAT 92
[2021-10-28] MEDS: romosozumab-aqqg 210 mg/2.34 mL syr SUBCUT (14:27)
[2021-10-28 14:35] VITALS: BP 102/60; PULSE 58; RESP 18; TEMP 36.4; O2SAT 92
== END 2021-10-28 13:47 | disposition home or self-care (01) ==
LOC: ONCMED 13:47
PROVIDERS: PCP Physician Assistant; Referring Provider Physician Assistant; Visit Provider Physician Assistant
DX: M81.0 Age-related osteoporosis without current pathological fracture (principal); Z79.899 Other long term (current) drug therapy
CPT/HCPCS: 96372; J3590

== ENCOUNTER 2021-11-09 10:23 | Inpatient (IN) | payer MEDICARE, SELFPAY ==
[2021-11-09] VITALS (24 sets, daily range): BP systolic 83–126; BP diastolic 37–98; PULSE 31–92; RESP 16–27; TEMP 36.1–36.6; O2SAT 88–96; BMI 22.6
--- NOTE | 2021-11-09 10:42 | ECG_ITS ---
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 Measurements Intervals [place] Rate: 64 P: 85 LA: 160 QRS: 97 QRSD: 140 T: -30 QT: 460 QTc: 475 Interpretive Statements SINUS RHYTHM WITH FREQUENT VENTRICULAR PREMATURE COMPLEXES IN A BIGEMINAL PATTERN POSSIBLE LEFT ATRIAL ENLARGEMENT [-0.1mV P-WAVE IN V1/V2] RIGHT BUNDLE BRANCH BLOCK [120+ ms QRS DURATION, UPRIGHT V1, 40+ ms S IN I/aVL/V4/V5/V6] MODERATE T-WAVE ABNORMALITY, CONSIDER LATERAL ISCHEMIA [-0.1+ mV T-WAVE IN I/aVL/V5/V6] No previous ECG available for comparison Electronically Signed On 11-09-2021 18:32:31 CDT by Tony Rebolledo M.D. [id number]
--- NOTE | 2021-11-09 10:42 | XRR_ITS ---
PROCEDURE INFORMATION: Exam: XR Chest Exam date and time: 11/09/2021 10:52 AM Age: 75 years old Clinical indication: Cough and dyspnea; Additional info: Dyspnea/cough TECHNIQUE: Imaging protocol: XR of the chest. Views: 1 view. COMPARISON: CR XR chest 1V portable [id number] 01/27/2021 2:20 PM FINDINGS: Lungs: Patchy bibasilar airspace opacities. Pleural spaces: Small bilateral pleural effusions. No pneumothorax. Heart/Mediastinum: Unremarkable. No cardiomegaly. Bones/joints: Unremarkable. XR/XR chest 1V portable [id number] IMPRESSION: 1. Patchy bibasilar airspace opacities, which may reflect atelectasis versus pneumonia. 2. Small bilateral pleural effusions.
[2021-11-09 11:27] LABS: Basophils # 0.1 10^3/uL (0.0-0.1); Basophils % 0.6 %; Eosinophils # 0.4 10^3/uL (0.0-0.8); Eosinophils % 3.3 %; Hematocrit 33.9 % (37.0-47.0); Hemoglobin 10.9 g/dL (11.5-15.3); Lymphocytes # 1.6 10^3/uL (0.8-4.8); Lymphocytes % 13.5 %; Mean Corpuscular HGB Conc 32.2 g/dL (30.0-36.0); Mean Corpuscular Hemoglobin 28.2 pg (28.0-34.0); Mean Corpuscular Volume 87.8 fl (81-99); Mean Platelet Volume 10.2 fL (7.4-10.4); Monocytes # 1.1 10^3/uL (0.2-0.9); Monocytes % 9.4 %; Neutrophils # 8.52 10^3/uL (1.8-7.7); Neutrophils % 72.9 %; Nucleated Red Blood Cells % 0 %; Platelet Count 269 10^3/cmm (130-400); Red Blood Count 3.86 10^6/uL (4.1-5.3); Red Cell Distribution Width 14.3 % (12.1-15.1); White Blood Count 11.7 10^3/uL (4.0-10.0)
--- NOTE | 2021-11-09 11:28 | W.ED.SOB ---
HPI - SOB/Dyspnea General: Chief Complaint: Shortness of Breath/Dyspnea Stated Complaint: SOB Time Seen by Provider: 11/09/21 10:34 Source: patient Mode of arrival: ambulatory Limitations: no limitations History of Present Illness: HPI Narrative: 75-year-old female presents to the emergency room with complaints of shortness of breath progressively worsening over the last month. She has had a moderately productive cough she is also significant bradycardic on arrival here. She was seen at her primary care doctor and advised that she had pneumonia as well as some CHF exacerbation and advised to present to the emergency room. She denies any chest or abdominal pain at this time no dysuria urgency or frequency. On arrival she has a heart rate of 31 and O2 sat of 90% on room air. EKG showed bigeminy. MD elicited complaint: shortness of breath and cough Pertinent past history: COPD and congestive heart failure Onset (ago): month(s) (1) Timing: constant Exacerbating factors: exertion and coughing Relieving factors: oxygen and rest Known history of: COPD and congestive heart failure Associated symptoms: Reports chest congestion and cough; Deny abdominal pain, chest pain, diaphoresis, dizziness, extremity pain, fever(s), hemoptysis, lightheadedness, myalgias, nausea, orthopnea, palpitations, paresthesias, polydipsia, polyuria, rash, sense of impending doom, syncope or vomiting Treatment prior to arrival: none Review of Systems Const: Denies: fever(s) or diaphoresis ENMT: Denies: throat pain, ear or mastoid pain, nasal discharge or nasal congestion Card: Denies: chest pain, palpitations, lightheadedness, syncope or orthopnea Resp: Reports: chest congestion; Denies: hemoptysis GI: Denies: abdominal pain, nausea or vomiting : Denies: flank pain, difficulty voiding, dysuria, urinary frequency or urinary urgency Musc: Denies: extremity pain Skin/Breast: Denies: rash or pruritus Neuro: Denies: dizziness Endo: Denies: polyuria or polydipsia PFS ED PFSH: Medical History Coronary artery disease History of abdominal hernia Hyperlipidemia Hypertension Urolithiasis UTI (urinary tract infection) Surgical History Hx of appendectomy Hx of endarterectomy Hx of heart artery stent Hx of hysterectomy Family History Mother , IN HER 90'S. LYMPH NODE CANCER Diabetes Cancer Other CAD (coronary artery disease) Hypertension Social History Smoking and tobacco status: current every day smoker (1/2 pack daily) cigarettes Packs smoked per day: 0.5 Alcohol intake: former Marital status: Current occupational status: retired History of recent travel: No Physical Exam Const: COMMON NORMALS: no acute distress GENERAL APPEARANCE: cooperative and comfortable ORIENTATION/CONSCIOUSNESS: Yes awake, Yes oriented to person, Yes oriented to place and Yes oriented to time HENMT: COMMON NORMALS: normocephalic and atraumatic HEAD & SCALP: normocephalic and atraumatic Neck/C-Spine: COMMON NORMALS: no JVD Resp: COMMON NORMALS: normal respiratory effort, No retractions, No use of accessory muscles and clear to auscultation bilaterally AUSCULTATION: clear to auscultation bilaterally Cardio: COMMON NORMALS: no JVD, regular rate, regular rhythm and No murmurs present (Cardio) RATE: regular rate RHYTHM: regular rhythm GI: COMMON NORMALS: Soft to palpation and No hepatosplenomegaly present AUSCULTATION: Yes normoactive bowel sounds PALPATION: Yes Soft to palpation, No Tenderness to palpation present (GI), No Guarding due to palpation present (GI) and Yes No hepatosplenomegaly present Extremity: COMMON NORMALS: normal to inspection, capillary refill normal, no clubbing, cyanosis or edema, no calf tenderness and no pedal edema Neuro: SENSORIUM/ORIENTATION: Yes oriented to person, Yes oriented to place and Yes oriented to time Skin: COMMON NORMALS: no rashes or lesions noted GENERAL SKIN EXAM: no rashes or lesions noted Course Vital Signs: Vital signs: Vital Signs Temperature 97.8 F 11/09/21 10:34 Pulse Rate 18 L 11/09/21 13:27 Respiratory Rate 20 H 11/09/21 13:27 Blood Pressure 83/42 11/09/21 13:27 Pulse Oximetry 90 11/09/21 13:27 MDM - SOB/Dyspnea Medical Decision Making Patient has some CHF there is pleural effusions there is well. There may be some underlying pneumonia in addition to that she has a cystitis. Discussed with hospitalist he is seeing the patient is written orders to admit. Serial troponins still pending. Medical Records I reviewed the patient's medical records. Lab Data I reviewed the patient's lab results. : 11/09/21 11:10 11/09/21 11:10 Labs/Radiology: Radiology Impressions Chest X-Ray 11/09/21 10:42 IMPRESSION: 1. Patchy bibasilar airspace opacities, which may reflect atelectasis versus pneumonia. 2. Small bilateral pleural effusions. Laboratory Results WBC 11.7 10^3/uL (4.0-10.0) H 11/09/21 11:10 RBC 3.86 10^6/uL (4.1-5.3) L 11/09/21 11:10 Hgb 10.9 g/dL (11.5-15.3) L 11/09/21 11:10 Hct 33.9 % (37.0-47.0) L 11/09/21 11:10 MCV 87.8 fl (81-99) 11/09/21 11:10 MCH 28.2 pg (28.0-34.0) 11/09/21 11:10 MCHC 32.2 g/dL (30.0-36.0) 11/09/21 11:10 RDW 14.3 % (12.1-15.1) 11/09/21 11:10 Plt Count 269 10^3/cmm (130-400) 11/09/21 11:10 MPV 10.2 fL (7.4-10.4) 11/09/21 11:10 Neut % (Auto) 72.9 % 11/09/21 11:10 Lymph % (Auto) 13.5 % 11/09/21 11:10 Ransom % (Auto) 9.4 % 11/09/21 11:10 Eos % (Auto) 3.3 % 11/09/21 11:10 Baso % (Auto) 0.6 % 11/09/21 11:10 Neut # (Auto) 8.52 10^3/uL (1.8-7.7) H 11/09/21 11:10 Lymph # (Auto) 1.6 10^3/uL (0.8-4.8) 11/09/21 11:10 Ransom # (Auto) 1.1 10^3/uL (0.2-0.9) H 11/09/21 11:10 Eos # (Auto) 0.4 10^3/uL (0.0-0.8) 11/09/21 11:10 Baso # (Auto) 0.1 10^3/uL (0.0-0.1) 11/09/21 11:10 Nucleated RBC % (auto) 0 % 11/09/21 11:10 Nucleated RBCs # 0.0 /100WBC 11/09/21 11:10 Sodium 134 mmol/L (136-145) L 11/09/21 11:10 Potassium 5.6 mmol/L (3.5-5.1) H 11/09/21 11:10 Chloride 100 mmol/L (98-107) 11/09/21 11:10 Carbon Dioxide 20 mmol/L (22-29) L 11/09/21 11:10 Anion Gap 19.6 (5-19) H 11/09/21 11:10 BUN 35 mg/dL (8-23) H 11/09/21 11:10 Creatinine 1.7 mg/dL (0.5-0.9) H 11/09/21 11:10 GFR Calculation Not Reportable 11/09/21 11:10 Glucose 138 mg/dL (65-115) H 11/09/21 11:10 Calculated Osmolality 288 mOsm/kg (285-295) 11/09/21 11:10 Calcium 9.8 mg/dL (8.5-10.5) 11/09/21 11:10 Total Bilirubin 0.4 mg/dL (0.15-1.2) 11/09/21 11:10 AST 25 U/L (0-32) 11/09/21 11:10 ALT 25 U/L (0-33) 11/09/21 11:10 Alkaline Phosphatase 136 IU/L (35-105) H 11/09/21 11:10 Troponin T Baseline 60 ng/L (0-10) H 11/09/21 11:10 NT-Pro-B Natriuret Pep 24434 pg/mL (0-125) H 11/09/21 11:10 Total Protein 6.6 g/dL (6.6-8.7) 11/09/21 11:10 Albumin 4.0 g/dL (3.5-5.2) 11/09/21 11:10 Globulin 2.6 g/dL (1.3-4.6) 11/09/21 11:10 Urine Color Yellow (Yellow) 11/09/21 13:24 Urine Appearance Sl cloudy (CLEAR) A 11/09/21 13:24 Urine pH 5 (5-7) 11/09/21 13:24 Ur Specific [place] 1.005 (1.005-1.030) 11/09/21 13:24 Urine Protein Neg (Negative) 11/09/21 13:24 Urine Glucose (UA) Norm (Normal) 11/09/21 13:24 Urine Ketones Negative (Negative) 11/09/21 13:24 Urine Blood Neg (Negative) 11/09/21 13:24 Urine Nitrate Negative (Negative) 11/09/21 13:24 Urine Bilirubin Neg (Negative) 11/09/21 13:24 Urine Urobilinogen Norm mg/dL (Negative) 11/09/21 13:24 Ur Leukocyte Esterase 2+ (Negative) H 11/09/21 13:24 Urine RBC 0-4 /hpf (0-2) H 11/09/21 13:24 Urine WBC 80-100 /hpf (0-5) H 11/09/21 13:24 Ur Squamous Epith Cells 5-10 /hpf (0-5) H 11/09/21 13:24 Amorphous Sediment Not Reportable 11/09/21 13:24 Urine Bacteria 3+ /hpf (NONE) H 11/09/21 13:24 Discharge Plan Discharge Condition: Stable Prescriptions: No Action naproxen sodium [Aleve] 220 mg capsule 220 mg PO BID PRN (Reason: Pain) 0RF lisinopril 20 mg tablet 20 mg PO BID 0RF trazodone 100 mg tablet 100 mg PO BEDTIME 0RF cholecalciferol (vitamin D3) 50 mcg (2,000 unit) capsule 50 mcg PO QAM 0RF atorvastatin 40 mg tablet 40 mg PO QAM 0RF mirtazapine 15 mg tablet 15 mg PO BEDTIME 0RF aspirin [Adult Aspirin Regimen] 81 mg tablet,delayed release (DR/EC) 81 mg PO QAM 0RF pramipexole 0.25 mg tablet 0.25 mg PO BID 0RF potassium chloride 10 mEq capsule, extended release 10 meq PO QAM 0RF magnesium chloride 64 mg tablet,delayed release (DR/EC) 64 mg PO QAM 0RF amlodipine 10 mg tablet 10 mg PO BID Qty: 180 3RF furosemide [Lasix] 20 mg tablet 40 mg PO QAM 0RF metoprolol succinate 100 mg tablet extended release 24 hr 100 mg PO QAM Qty: 90 3RF omeprazole 40 mg Capsule,Delayed Release(Dr/Ec) 40 mg PO QAM 0RF metformin 500 mg tablet 500 mg PO QAM 0RF hydrochlorothiazide 12.5 mg tablet 12.5 mg PO QAM 0RF Evenity 105 mg/1.17 mL Syringe 105 mg SUBCUT Q30D 0RF Rx Instructions: due to get December 02 Referrals: Marlyn Fisher PA [Primary Care Provider] - Coding Level of Care Code ED Enrollment Management Manager for Chg Fwd Exam Comprehensive
[2021-11-09 11:48] LABS: Troponin(5th) Baseline 60 ng/L (0-10)
[2021-11-09] MEDS: levofloxacin-dextrose 5 % 750 MG/150 ML PREMIX 100 MG IV (11:49)
[2021-11-09 11:54] LABS: Alanine Aminotransferase 25 U/L (0-33); Alkaline Phosphatase 136 IU/L (35-105); Anion Gap 19.6 (5-19); Aspartate Amino Transferase 25 U/L (0-32); Blood Urea Nitrogen 35 mg/dL (8-23); Calcium 9.8 mg/dL (8.5-10.5); Carbon Dioxide 20 mmol/L (22-29); Chloride 100 mmol/L (98-107); Globulin 2.6 g/dL (1.3-4.6); Glucose 138 mg/dL (65-115); NT Pro B Type Natriuretic Pept 26883 pg/mL (0-125); Osmolality Calculated 288 mOsm/kg (285-295); Potassium 5.6 mmol/L (3.5-5.1); Sodium 134 mmol/L (136-145); Total Bilirubin 0.4 mg/dL (0.15-1.2); Total Protein 6.6 g/dL (6.6-8.7)
[2021-11-09] MEDS: sodium polystyrene sulfonate 15 gm/60 mL Btl 30 GM PO (12:33)
[2021-11-09] MEDS: FUROsemide 10 mg/mL SDV 4mL 40 MG IVP (12:33)
--- NOTE | 2021-11-09 12:42 | ECG_ITS ---
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 Measurements Intervals [place] Rate: 65 P: 89 [place]: 167 QRS: 110 QRSD: 133 T: -71 QT: 401 QTc: 417 Interpretive Statements SINUS RHYTHM WITH FREQUENT VENTRICULAR PREMATURE COMPLEXES IN A BIGEMINAL PATTERN POSSIBLE LEFT ATRIAL ENLARGEMENT [-0.1mV P-WAVE IN V1/V2] INTRAVENTRICULAR CONDUCTION DELAY [130+ ms QRS DURATION] No previous ECG available for comparison Electronically Signed On 11-09-2021 18:35:45 CDT by Tony Rebolledo M.D. [id number]
--- NOTE | 2021-11-09 13:10 | PC.NURSE ---
2nd EKG done at 1300 and shown to ER doctor
[2021-11-09 13:52] LABS: Bilirubin Urine Neg (Negative); Blood Urine Neg (Negative); Glucose Urine UA Norm (Normal); Ketones Urine Negative (Negative); Nitrate Urine Negative (Negative); Protein Urine Neg (Negative); Specific Gravity, Urine 1.005 (1.005-1.030); Urine Color Yellow (Yellow); Urobilinogen Urine Norm (Negative); pH Urine 5 (5-7)
[2021-11-09 13:53] LABS: Add Urine Culture? Yes; Add Urine Microscopic? YES; Bacteria Urine 3+ /hpf; Leukocyte Esterase Urine 2+ (Negative); RBC Urine 0-4 /hpf (0-2); WBC Urine 80-100 /hpf (0-5)
[2021-11-09] MEDS: calcium gluconate 0.9% NaCL 1 GM/50 ML PREMIX IV ×2 (13:59→14:27)
--- NOTE | 2021-11-09 14:01 | USCV_ITS ---
Zoe Friedman Age: 75 Gender: F : 1945 Exam Date: 11/09/2021 14:19 Ordering Phys: Home Schreiber MD Technologist: Zane Esparza Exam Location: [facility] – [place] Indication: Congestive heart failure BP: 124 / 72 HR: 61 Rhythm: Other Technical Quality: Good MEASUREMENTS (Male / Female) Normal Values 2D ECHO LV Diastolic Diameter PLAX 4.6 cm 4.2 - 5.9 / 3.9 - 5.3 cm LV Systolic Diameter PLAX 3.6 cm IVS Diastolic Thickness 1.0 cm 0.6 - 1.0 / 0.6 - 0.9 cm IVS Systolic Thickness 1.3 cm LVPW Diastolic Thickness 1.3 cm 0.6 - 1.0 / 0.6 - 0.9 cm LVPW Systolic Thickness 1.1 cm LVOT Diameter 2.0 cm LV Ejection Fraction 2D Teich 43.1 % LV Ejection Fraction MOD 2C 54.0 % LV Ejection Fraction 2C AL 54.3 % LA Diameter 4.3 cm Aorta at Sinotubular Diameter 2.4 cm IVC Diameter 1.6 cm M-MODE Aortic Annulus Diameter 2.5 cm LA Ao Ratio MM 1.9 FINDINGS Left Ventricle Normal left ventricular size and mildly decreased systolic function and wall thickness, with no regional wall motion abnormalities. Left ventricular ejection fraction is estimated at 45-50 %. Mild global hypokinesis. Right Ventricle Normal right ventricular size and systolic function. Right Atrium Normal right atrial size. Left Atrium Mild increased left atrial size. Mitral Valve Moderately thickened mitral valve. Aortic Valve Aortic valve not well visualized. Probably thickened and calcified aortic valve. Tricuspid Valve Pulmonic Valve Pulmonic valve not well visualized. Pericardium No pericardial effusion. Aorta Normal size aortic root and proximal ascending aorta. IVC Normal IVC dimension with >50% respiratory change of the inferior vena cava. CONCLUSIONS 1. Normal left ventricular size and mildly decreased systolic function and wall thickness, with no regional wall motion abnormalities. Left ventricular ejection fraction is estimated at 45-50 %. Mild global hypokinesis. 2. Normal right ventricular size and systolic function. 3. When compared to previous study dated 08/25/21, left ankle systolic function seems to have decreased. 4. Interpretation is limited by frequent ectopy. Vera Wise MD (Electronically Signed) Final Date: 09 November 2021 17:59 S
--- NOTE | 2021-11-09 14:09 | P.HP_ITS ---
Providers/Chief Complaint Admitting Physician: Home Schreiber MD, hospitalist Primary Care Provider: Marlyn Fisher Chief Complaint: SOB History of Present Illness Zoe Friedman is a 75 year old female who presents to the emergency department from home with complaints of shortness of breath, nonproductive cough, weakness going on for at least the last month. She will occasionally have some intermittent chest discomfort, substernal, pressure. She is normally short of breath with walking a short amount but now can hardly go 10 steps. Her most recent medication changes were doubling her lisinopril, and increasing her Lasix. She does not feel like she is swollen. Her weight is minimally up lately, approximately 2 pounds. She denies any fevers at home, nausea, vomitin g, blood in stool, diarrhea. In the emergency department there was originally a concern of low heart rate of 31, but she was found to be in bigeminy and not all of the beats registering. In the emergency department, she was given Kayexalate for hyperkalemia, and a dose of 40 mg of Lasix IV. She was also given Levaquin for concern of pneumonia. Review of Systems General: Reports: 10 or more systems reviewed and unremarkable except in HPI and below Const: Reports: fatigue; Denies: fever(s) or chills Eyes: Denies: change in vision ENMT: Reports: nasal discharge Card: Reports: chest pain Resp: Reports: dyspnea and non-productive cough GI: Denies: abdominal pain, nausea, vomiting, hematochezia or melena : Denies: flank pain Musc: Denies: neck pain Skin/Breast: Denies: rash Neuro: Denies: headache(s) Psych: Denies: anxiety or depression Endo: Denies: polyuria Cisco/Lymph: Denies: easy bruising All/Imm: Denies: urticaria Medications/Allergies Home Medications Medication Instructions Recorded Confirmed Last Taken Type aspirin 81 mg tablet,delayed 81 mg PO QAM 12/24/20 11/09/21 11/09/21 05:30 History release (Adult Aspirin Regimen) atorvastatin 40 mg tablet 40 mg PO QAM 12/24/20 11/09/21 11/09/21 05:30 History cholecalciferol (vitamin D3) 50 50 mcg PO QAM 12/24/20 11/09/21 11/09/21 05:30 History mcg (2,000 unit) capsule mirtazapine 15 mg tablet 15 mg PO BEDTIME 12/24/20 11/09/21 11/08/21 History potassium chloride 10 mEq 10 meq PO QAM 12/24/20 11/09/21 11/09/21 History capsule,extended release pramipexole 0.25 mg tablet 0.25 mg PO BID 12/24/20 11/09/21 11/09/21 History trazodone 100 mg tablet 100 mg PO BEDTIME 12/24/20 11/09/21 02/24/21 History omeprazole 40 mg capsule,delayed 40 mg PO QAM 01/27/21 11/09/21 Unknown History release magnesium chloride 64 mg 64 mg PO QAM 02/04/21 11/09/21 11/09/21 History (magnesium chloride) tablet,delayed release lisinopril 20 mg tablet 20 mg PO BID tab 06/01/21 11/09/21 11/09/21 05:30 History naproxen sodium 220 mg capsule 220 mg PO BID PRN 06/01/21 11/09/21 Unknown History (Aleve) amlodipine 10 mg tablet 10 mg PO BID #180 tab 08/05/21 11/09/21 11/09/21 05:30 Rx furosemide 20 mg tablet (Lasix) 40 mg PO QAM tab 08/09/21 11/09/21 11/09/21 History metoprolol succinate 100 mg 100 mg PO QAM #90 tab 10/06/21 11/09/21 11/09/21 Rx tablet,extended release 24 hr hydrochlorothiazide 12.5 mg tablet 12.5 mg PO QAM 11/09/21 11/09/21 11/09/21 History metformin 500 mg tablet 500 mg PO QAM 11/09/21 11/09/21 11/09/21 History romosozumab-aqqg 105 mg/1.17 mL 105 mg SUBCUT Q30D 11/09/21 11/09/21 Unknown History subcutaneous syringe (Evenity) Allergies Allergy/AdvReac Type Severity Reaction Status Date / Time dulaglutide [From [facility]] AdvReac Mild ADV-Weaknes Verified 11/09/21 11:36 s PFSH Acute PFSH: Medical History (Updated 11/09/21 @ 14:34 by Home Schreiber MD) Carotid artery disease Coronary artery disease Depression with anxiety Diabetes mellitus GERD (gastroesophageal reflux disease) History of abdominal hernia Hyperlipidemia Hypertension Insomnia Obstructive sleep apnea Osteoporosis Peripheral vascular disease Tobacco dependency Urolithiasis UTI (urinary tract infection) Surgical History (Updated 11/09/21 @ 14:19 by Home Schreiber MD) History of hernia repair Hx of appendectomy Hx of endarterectomy Hx of heart artery stent Hx of hysterectomy Family History Mother , IN HER 90'S. LYMPH NODE CANCER Diabetes Cancer Other CAD (coronary artery disease) Hypertension Social History Smoking and tobacco status: current every day smoker (1/2 pack daily) cigarettes Packs smoked per day: 0.5 Alcohol intake: former Marital status: Current occupational status: retired History of recent travel: No Other PFSH information: Supplemental PFSH Information: History of peripheral stenting Vitals/I&O/Wt Last Vital Signs Temp 97.8 F 11/09/21 10:34 Pulse 18 L 11/09/21 13:27 Resp 20 H 11/09/21 13:27 BP 83/42 11/09/21 13:27 Pulse Ox 90 11/09/21 13:27 Weight last 48 hrs Weight 48.988 kg Physical Exam Narrative: General exam is a white female, mild respiratory distress, conversant but occasionally coughing during exam HEENT: Atraumatic normocephalic. Pupils equally round. Oropharynx clear. Neck is supple no lymphadenopathy or thyromegaly Cardiovascular irregularly irregular without murmur Lungs diminished breath sounds bilaterally. Few crackles noted anterior chest. Abdomen is soft nontender positive bowel sounds. No obvious organomegaly exam is deferred Extremities no cyanosis clubbing or edema. Some evidence of tinea pedis with erythema and peeling noted on plantar surface of foot cap refill 1 to 2 seconds no obvious significant skin breakdown Skin see findings above Neuro no obvious focal deficits Data : 11/09/21 11:10 11/09/21 11:10 Other Labs: Previous echocardiogram in July demonstrated EF of 55 to 60%, 1/4 diastolic dysfunction, no major valvular abnormalities EKG demonstrates bigeminy, normal axis, right bundle branch block, sinus rhythm Blood culture has been collected Chest x-ray bibasilar infiltrate cannot rule out pneumonia and small bilateral effusions LFTs normal with the exception of alk phos of 136 Troponin baseline 60 with repeat pending BNP 26,883 Albumin 4.0 Urinalysis with 80-100 white blood cells 3+ bacteria, 0-4 reds Micro: Microbiology 11/09/21 12:47 Blood Culture - Preliminary Blood SPECIMEN COLLECTED A&P Assessment and plan (1) Acute kidney injury: Significant acute kidney injury. Cannot rule out ATN. Patient recently had Lasix as well as NURIA inhibitor increased. She is hypotensive at times in the emergency department. Although there is concern for fluid overload, clinically she does not appear to have such. At this point we will slowly hydrate, monitoring closely. Hold any further diuretics Will give a bolus of 250 cc of saline Hold NURIA inhibitor, antihypertensives Check renal ultrasound to rule out obstruction Hold anti-inflammatories. She was taking anti-inflammatories at home. Status: Acute (2) UTI (urinary tract infection): InsertPatient has for UTI, on admission. She is hypotensive. Blood cultures have been drawn Obtain urine culture Patient has past history of ESBL. Will initiate Primaxin. Status: Acute (3) Hyperkalemia: Patient with hyperkalemia on presentation. Secondary to bigeminy we will go ahead and give calcium gluconate Continue to monitor on telemetry in the ICU She had gotten a dose of Kayexalate earlier. At this point, plan on repeating potassium at 4 PM Add insulin sliding scale which may help some as well. If potassium still high or any significant return of rhythm abnormalities will consider insulin and glucose and other measures. Status: Acute (4) Metabolic acidosis: Patient presented with metabolic acidosis which is likely from their acute kidney injury. However, they are also taking metformin which could exacerbate metabolic acidosis. At this point will hydrate slightly, try to reverse renal d ysfunction, and hold metformin. Status: Acute (5) Chest pain: Patient with chest discomfort intermittently at home prior to admission. Serial cardiac enzymes Continue aspirin Limited echocardiogram Further work-up may be warranted as patient stabilizes or as outpatient. Status: Acute (6) Elevated brain natriuretic peptide (BNP) level: Patient with significantly elevated BNP, but no clinical evidence of fluid overload. Hydrate slightly Limited echo Hold diuretics currently secondary to hypotension, acute kidney injury Status: Acute (7) Bigeminy: Check magnesium level Limited echo Trend troponins Correction of potassium Status: Acute (8) Pneumonia: Question of pneumonia on presentation. Primaxin is being given currently for UTI Obtain sputum culture, MRSA PCR Follow clinically Wean oxygen as tolerated Pulmonary toilet with DuoNeb, budesonide At this point I do not think she has a COPD exacerbation, but does have COPD. S he has longstanding tobacco dependency. Status: Acute (9) Anemia: Continue to follow closely. Likely related to renal dysfunction Status: Acute (10) Hypertension: Currently hypotensive, hold medicines Status: Acute (11) Tobacco dependency: Encouraged tobacco cessation Status: Acute (12) Diabetes mellitus: Hold metformin Insulin sliding scale Status: Acute Plan Multiple other medical problems as outlined in past medical history Full code Heparin for DVT prophylaxis Attestations Medical Necessity Statement*: Will need greater than 2 midnight stay for evaluation and treatment of multiple medical conditions as outlined above including bigeminy, hyperkalemia, acute kidney injury with need for fluids, IV antibiotics and close monitoring. Critical Care Time: The high probability of a clinically significant, sudden or life threatening deterioration of the patient's [renal, cardiac, pulmonary system(s) required my full and direct attention, intervention and personal management. The critical care time is as shown. This time is in addition to time spent performing any reported procedures but includes the following: [x] Data and vital sign review and interpretation [x] Patient assessment, examination and intervention [x] Documentation [x] Medication orders and management Critical Care Time (min): 59 Coding Level of Care Code Acute Nutrition Consultant for [facility] Fwd Diagnoses Acute kidney injury N17.9 UTI (urinary tract infection) N39.0 Hyperkalemia E87.5 Metabolic acidosis E87.2 Chest pain R07.9 Elevated brain natriuretic peptide (BNP) level R79.89 Bigeminy I49.8 Anemia D64.9 Hypertension I10 Tobacco dependency F17.200 Diabetes mellitus E11.9 Pneumonia J18.9
[2021-11-09 14:16] LABS: Adenovirus Not Detected (NOT DETECT); Chlamydia Pneumoniae Not Detected (NOT DETECT); Coronavirus 229E,HKU1,NL63,OC4 Not Detected (NOT DETECT); Human Metapneumovirus Not Detected (NOT DETECT); Human Rhinovirus/Enterovirus Not Detected (NOT DETECT); Influenza A Not Detected (NOT DETECT); Influenza A H1 Not Detected (NOT DETECT); Influenza A H1-2009 Not Detected (NOT DETECT); Influenza A H3 Not Detected (NOT DETECT); Influenza B Not Detected (NOT DETECT); Mycoplasma Pneumoniae Not Detected (NOT DETECT); Parainfluenza Virus Type 1 Not Detected (NOT DETECT); Parainfluenza Virus Type 2 Not Detected (NOT DETECT); Parainfluenza Virus Type 3 Not Detected (NOT DETECT); Parainfluenza Virus Type 4 Not Detected (NOT DETECT); Respiratory Syncytial Virus A Not Detected (NOT DETECT); Respiratory Syncytial Virus B Not Detected (NOT DETECT); SARS-COV-2 Not Detected (NOT DETECT)
--- NOTE | 2021-11-09 14:18 | PC.NURSE ---
Multiple lab & IV attempts, ultrasound used for IV placement.
[2021-11-09] MEDS: heparin 5,000 unit/mL INJ 1 mL 5000 UNIT SUBCUT (14:28)
--- NOTE | 2021-11-09 14:29 | US_ITS ---
WS: [id number] RENAL ULTRASOUND HISTORY: renal failure COMPARISON: 12/16/2020 TECHNIQUE: 2-D and color Doppler imaging of the kidney submitted. Right kidney: 8.0 cm x 3.8 cm x 3.7 cm. Mild atrophy. No hydronephrosis or mass. Nonobstructing calcification central renal pelvis measures 6 mm. Left kidney: 11.1 cm x 5.3 cm x 6.2 cm. Kidneys difficult to visualize probably due to body habitus. No mass or hydronephrosis identified. Th ere is very minimal prominence of the central renal pelvis but no calyceal dilatation. Aorta: Mild atherosclerosis. No aneurysm identified. Urinary Bladder: Normal distention. Small RIGHT pleural effusion. US/US renal BI* [id number] IMPRESSION: 1. Mild atrophy RIGHT kidney similar to the prior study. 2. No hydronephrosis identified. 3. Small RIGHT pleural effusion.
[2021-11-09 14:30] LABS: D Dimer 1.05 ug/mIFEU (0-0.59)
[2021-11-09 14:34] LABS: Troponin 5 2HR 64.78 ng/L (0-10)
[2021-11-09 14:35] LABS: Troponin 5 2HR Delta 4.78 ABS# (0-10)
[2021-11-09 14:35] LABS: Creatine Phosphokinase 42 U/L (26-192); Magnesium 1.6 mg/dL (1.7-2.3); Thyroid Stimulating Hormone 3.76 uIU/mL (0.27-4.20)
[2021-11-09] MEDS: sodium chloride 0.9% 250 ML IV (14:53)
[2021-11-09] MEDS: magnesium sulfate premix 2 GM/50 ML PIGGYBACK IV (15:20)
[2021-11-09 16:37] LABS: Troponin 5 6HR 71.09 ng/L (0-10)
[2021-11-09] MEDS: sodium chloride 0.9% 1,000 ML 50 ML IV (16:40)
--- NOTE | 2021-11-09 16:42 | ECG_ITS ---
[facility] Test Date: 2021-11-09 Pat Name: Zoe Friedman Department: Room: ICU02 Gender: Female Marketing Executive: : 1945 Requested By: Neil Deras Order Number: [id number] Willy MD: Tony Rebolledo M.D. Measurements Intervals [place] Rate: 71 P: 75 MT: 161 QRS: 89 QRSD: 133 T: -42 QT: 423 QTc: 460 Interpretive Statements SINUS RHYTHM WITH FREQUENT ECTOPIC PREMATURE COMPLEXES IN A BIGEMINAL PATTERN POSSIBLE LEFT ATRIAL ENLARGEMENT [-0.1mV P-WAVE IN V1/V2] RIGHT BUNDLE BRANCH BLOCK [120+ ms QRS DURATION, UPRIGHT V1, 40+ ms S IN I/aVL/V4/V5/V6] MODERATE T-WAVE ABNORMALITY, CONSIDER INFERIOR ISCHEMIA [-0.1+ mV T-WAVE IN II/aVF] Compared to ECG 11/09/2021 13:02:06 Right bundle-branch block now present T-wave abnormality now present Possible ischemia now present Ventricular premature complex(es) no longer present Intraventricular conduction delay no longer present Electronically Signed On 11-09-2021 18:33:44 CDT by Tony Rebolledo M.D. [id number]
[2021-11-09 16:44] LABS: Blood Urea Nitrogen 36 mg/dL (8-23); Calcium 10.4 mg/dL (8.5-10.5); Carbon Dioxide 21 mmol/L (22-29); Chloride 99 mmol/L (98-107); Glucose 144 mg/dL (65-115); Osmolality Calculated 293 mOsm/kg (285-295); Sodium 136 mmol/L (136-145)
[2021-11-09 16:54] LABS: Troponin 5 6HR Delta 11.09 ng/L (0-12)
[2021-11-09 17:44] LABS: Anion Gap 21.5 (5-19); Potassium 5.5 mmol/L (3.5-5.1)
[2021-11-09] MEDS: pramipexole 0.25 mg Tablet PO (17:57)
[2021-11-09 17:58] LABS: Glucose Point of Care 130 mg/dL (70-110)
[2021-11-09] MEDS: mirtazapine 15 mg Tablet PO (20:31)
[2021-11-09] MEDS: trazodone 100 mg Tablet PO (20:31)
[2021-11-09] MEDS: ipratropium-albuterol 3 mL Neb INHALATION (20:32)
[2021-11-09] MEDS: budesonide 0.5 mg/2 mL Neb INHALATION (20:32)
[2021-11-09 23:22] LABS: Glucose Point of Care 141 mg/dL (70-110)
[2021-11-10] VITALS (41 sets, daily range): BP systolic 93–145; BP diastolic 44–92; PULSE 70–100; RESP 16–38; TEMP 36.6; O2SAT 87–96
[2021-11-10] MEDS: heparin 5,000 unit/mL INJ 1 mL 5000 UNIT SUBCUT (03:14)
[2021-11-10 03:36] LABS: Basophils # 0.1 10^3/uL (0.0-0.1); Basophils % 0.7 %; Eosinophils # 0.4 10^3/uL (0.0-0.8); Eosinophils % 4.5 %; Hematocrit 28.8 % (37.0-47.0); Hemoglobin 9.4 g/dL (11.5-15.3); Lymphocytes # 1.7 10^3/uL (0.8-4.8); Lymphocytes % 19.9 %; Mean Corpuscular HGB Conc 32.6 g/dL (30.0-36.0); Mean Corpuscular Hemoglobin 28.4 pg (28.0-34.0); Mean Platelet Volume 10.3 fL (7.4-10.4); Monocytes # 1.1 10^3/uL (0.2-0.9); Monocytes % 13.2 %; Neutrophils # 5.14 10^3/uL (1.8-7.7); Neutrophils % 61.5 %; Nucleated Red Blood Cells % 0 %; Platelet Count 204 10^3/cmm (130-400); Red Blood Count 3.31 10^6/uL (4.1-5.3); Red Cell Distribution Width 14.3 % (12.1-15.1); White Blood Count 8.4 10^3/uL (4.0-10.0)
[2021-11-10 03:57] LABS: Alanine Aminotransferase 17 U/L (0-33); Albumin Level 3.3 g/dL (3.5-5.2); Alkaline Phosphatase 108 IU/L (35-105); Anion Gap 16.2 (5-19); Aspartate Amino Transferase 15 U/L (0-32); Blood Urea Nitrogen 33 mg/dL (8-23); Calcium 8.6 mg/dL (8.5-10.5); Carbon Dioxide 20 mmol/L (22-29); Chloride 104 mmol/L (98-107); Globulin 2.2 g/dL (1.3-4.6); Glucose 102 mg/dL (65-115); Magnesium 1.4 mg/dL (1.7-2.3); Osmolality Calculated 289 mOsm/kg (285-295); Potassium 4.2 mmol/L (3.5-5.1); Sodium 136 mmol/L (136-145); Total Bilirubin 0.2 mg/dL (0.15-1.2); Total Protein 5.5 g/dL (6.6-8.7)
[2021-11-10] MEDS: aspirin 81 mg EC Tablet PO (06:10)
[2021-11-10 07:41] LABS: Glucose Point of Care 129 mg/dL (70-110)
[2021-11-10] MEDS: budesonide 0.5 mg/2 mL Neb INHALATION ×2 (08:01→20:43)
[2021-11-10] MEDS: ipratropium-albuterol 3 mL Neb INHALATION ×3 (08:01→20:43)
--- NOTE | 2021-11-10 08:37 | P.PN_ITS ---
Subjective Subjective: Follow-up Saw the patient this morning in the ICU. She was sleeping comfortably in the bed. She stated she was able to breathe better this morning. She reports she did have some chest discomfort last night. She does not have any currently. She has difficulty interpreting what this is due to, reporting that occasionally it feels like her lungs and tightness but she has had pressure in the past. She does not feel like she is swollen, and denies nausea and vomiting. She did ask for a bed vargas this morning. Medications: Reviewed: Yes Vitals/I&O/Wt Last Vital Signs Temp 97.9 F 11/10/21 03:15 Pulse 76 11/10/21 08:04 Resp 16 11/10/21 08:04 BP 118/53 11/10/21 06:00 Pulse Ox 95 11/10/21 08:04 11/09/21 11/10/21 11/10/21 22:59 06:59 14:59 Intake Total 500 / 746.667 Output Total 700 / 700 200 / 200 Balance 500 / 746.667 -700 / 46.667 -200 / -200 Weight last 48 hrs Weight 52.163 kg Weight 48.988 kg Physical Exam Narrative: Patient sleeping comfortably in her bed, normal coloration. Upon waking, the patient conversed appropriately, normal speech. HEENT: Atraumatic, normocephalic, mucosa looked moist. Neuro: Patient alert and oriented, normal speech and comprehension. CV: Normal rate and rhythm, normal BP. Lun.5 L NC oxygen with oxygen saturation in the mid 90s. Expiatory wheezing bilaterally. No external muscle use or breathing distress noted. GI: Abdomen soft, non-tender, normal bowel sounds. : No complaint of discomfort during urination. Skin: Intact, pink, dry Extremities no cyanosis clubbing or edema Const: COMMON NORMALS: no acute distress, patient oriented x3 and healthy appearing HENMT: COMMON NORMALS: normocephalic, atraumatic, hearing grossly normal bilaterally, external ears normal, Normal external nose present and moist oral mucous membranes HEAD & SCALP: normocephalic and atraumatic NOSE: Normal external nose present EXTERNAL EAR: Yes external ears normal MOUTH: Normal oral and palatal mucosa present and lip normal Eye: COMMON NORMALS: no scleral icterus Neck/C-Spine: COMMON NORMALS: full ROM, supple and no JVD Lymph: LYMPHATIC: no lymphadenopathy noted and no lymphedema noted Chest: COMMONS NORMALS: normal inspection of the chest Resp: COMMON NORMALS: normal respiratory effort and No use of accessory muscles AUSCULTATION: wheezes expiratory wheezes Cardio: COMMON NORMALS: no JVD, regular rate, regular rhythm, S1 normal heart sound present, S2 normal heart sound present, No gallops present (Cardio), No clicks present (Cardio), No murmurs present (Cardio) and No rub (Cardio) RATE : regular rate RHYTHM: regular rhythm HEART SOUNDS: S1 normal heart sound present and S2 normal heart sound present GI: COMMON NORMALS: Normal to inspection, nondistended, normoactive bowel sounds present, Soft to palpation and non-tender PALPATION: Yes Soft to palpation Extremity: COMMON NORMALS: normal to inspection, no clubbing, cyanosis or edema and no pedal edema Neuro: COMMON NORMALS: patient oriented x3 Psych: COMMON NORMALS: mental status grossly normal, Normal thought process p resent, cooperative and speech normal SPEECH: Yes normal speech THOUGHT PROCESS: Normal thought process present Skin: COMMON NORMALS: no rashes or lesions noted, no wounds, no jaundice, no petechiae and no mottling GENERAL SKIN EXAM: no rashes or lesions noted Data : 11/10/21 02:48 11/10/21 02:48 Micro: Microbiology 11/09/21 13:56 Blood Culture - Preliminary Blood SPECIMEN COLLECTED 11/09/21 12:47 Blood Culture - Preliminary Blood SPECIMEN COLLECTED Other data: ECHO shows EF of 45%, reduced from previous ECHO showing 55%. Renal ultrasound showed no evidence of obstruction, hydronephrosis. Urine is growing gram-negative rods A&P Assessment and plan (1) Acute kidney injury: Patient given a fluid bolus of 250 ml upon admission to the ICU along with a NS 0.9% drip at 50 ml/hr. Am labs show a mild improvement in Electric Motor And Generator As[employer]er 1.9>1.8. Renal ultrasound demonstrated no evidence of obstruction Plan to continue fluids and monitor renal function. Status: Acute (2) Elevated brain natriuretic peptide (BNP) level: Elevated BNP, Troponin, and ECHO of 45%. Patient continues to report chest discomfort, however it is reduced from admission. Cardiology consulted for follow up with patient. Status: Acute (3) Chest pain: Elevated BNP, Troponin, and ECHO of 45%. Patient continues to report chest discomfort, however it is reduced from admission. Cardiology consulted for follow up with patient. Last coronary stenting done in [place] approximately 6 to 7 years ago. Continue aspirin, statin. Initiate beta-mike low-dose as blood pressure is still somewhat low. Status: Acute (4) Hyperkalemia: Morning labs show a corrected K+: 4.2. Will continue to monitor with AM labs. Status: Acute (5) Bigeminy: Bigeminy seems to have improved after administration of Mg Continue to follow levels closely, and monitor for any further rhythm disturbance. Status: Acute (6) Anemia: Patient was likely hemoconcentrated due to dehydration upon admission. Hgb has decreased mildly from 10.9>9.4. Will continue to monitor patient Hgb. Will get stool Hemoccult, anemia panel Status: Acute (7) UTI (urinary tract infection): Continue IV Primaxin. Urine growing gram-negative rods Past cultures demonstrated ESBL Status: Acute (8) Pneumonia: Currently on Primaxin. Concern now for COPD exacerbation with active wheezing. Prednisone 40 mg a day ordered. Continue pulmonary toilet with DuoNeb and budesonide Await MRSA PCR, sputum culture Status: Acute Plan Multiple other medical problems as outlined in past medical history Full code Heparin drip will suffice for DVT prophylaxis May transfer to cardiac stepdown unit. Attestations Medical Necessity Statement*: Needs continued hospitalization for IV antibiotics secondary pneumonia, UTI and further work-up of cardiomyopathy. Coding Level of Care Code Acute Institutional Custodian for [facility] Fwd Exam Comprehensive Diagnoses Elevated brain natriuretic peptide (BNP) level R79.89 Chest pain R07.9 Hyperkalemia E87.5 Acute kidney injury N17.9 Bigeminy I49.8 Anemia D64.9 UTI (urinary tract infection) N39.0 Pneumonia J18.9
[2021-11-10] MEDS: pantoprazole DR 40 mg Tablet PO (08:38)
[2021-11-10] MEDS: magnesium sulfate premix 2 GM/50 ML PIGGYBACK IV (08:38)
[2021-11-10] MEDS: predniSONE 20 mg Tablet 40 MG PO (08:38)
[2021-11-10] MEDS: pramipexole 0.25 mg Tablet PO ×2 (08:38→18:39)
[2021-11-10] MEDS: metoprolol tartrate 25 mg Tablet 12.5 MG PO ×2 (08:38→21:21)
--- NOTE | 2021-11-10 09:50 | PM.CONSULT ---
Providers/Reason For Consult Consulting Physician/Specialty*: FLO Box MD/cardiology Reason for Consult*: Patient with chest pain/shortness of breath/history of coronary artery disease and PCI/elevated troponin T Requesting Physician: Dr. Schreiber Attending Physician: Home Schreiber MD Primary Care Provider: Marlyn Fisher History of Present Illness History of Present Illness Zoe Friedman is a 75 year old female he is admitted to the hospital through the emergency room, where she presented with complaints of respiratory distress and chest discomfort. This patient has history of atherosclerotic heart disease, high blood pressure, dyslipidemia and type 2 diabetes. She had multiple vessel PCI approximately 4 years ago in [place]. She has been doing okay since then with no significant cardiac symptoms. She recently moved to the [facility]. She has been having shortness of breath for the last month or so. It has been getting worse. She also has been experiencing tight feeling in the chest especially at night when she tries to lie down. She has no palpitation, dizziness or syncopal episodes. No fever or chills. No hemoptysis. She has a history of COPD/reactive airway disease. She continues to smoke. She has been smoking half to 1 pack a day for the last 50 years or so. No alcohol abuse or any other substance abuse. In the emergency room, she was found to have frequent PVCs in the form of bigeminy. She also had features of acute kidney injury and hyperkalemia. She also is being treated for hypomagnesemia. She was given IV Lasix. Her shortness of breath is improving. Medications/Allergies Home Medications Medication Instructions Recorded Confirmed Last Taken Type aspirin 81 mg tablet,delayed 81 mg PO QAM 12/24/20 11/09/21 11/09/21 05:30 History release (Adult Aspirin Regimen) atorvastatin 40 mg tablet 40 mg PO QAM 12/24/20 11/09/21 11/09/21 05:30 History cholecalciferol (vitamin D3) 50 50 mcg PO QAM 12/24/20 11/09/21 11/09/21 05:30 History mcg (2,000 unit) capsule mirtazapine 15 mg tablet 15 mg PO BEDTIME 12/24/20 11/09/21 11/08/21 History potassium chloride 10 mEq 10 meq PO QAM 12/24/20 11/09/21 11/09/21 History capsule,extended release pramipexole 0.25 mg tablet 0.25 mg PO BID 12/24/20 11/09/21 11/09/21 History trazodone 100 mg tablet 100 mg PO BEDTIME 12/24/20 11/09/21 02/24/21 History omeprazole 40 mg capsule,delayed 40 mg PO QAM 01/27/21 11/09/21 Unknown History release magnesium chloride 64 mg 64 mg PO QAM 02/04/21 11/09/21 11/09/21 History (magnesium chloride) tablet,delayed release lisinopril 20 mg tablet 20 mg PO BID tab 06/01/21 11/09/21 11/09/21 05:30 History naproxen sodium 220 mg capsule 220 mg PO BID PRN 06/01/21 11/09/21 Unknown History (Aleve) amlodipine 10 mg tablet 10 mg PO BID #180 tab 08/05/21 11/09/21 11/09/21 05:30 Rx furosemide 20 mg tablet (Lasix) 40 mg PO QAM tab 08/09/21 11/09/21 11/09/21 History metoprolol succinate 100 mg 100 mg PO QAM #90 tab 10/06/21 11/09/21 11/09/21 Rx tablet,extended release 24 hr hydrochlorothiazide 12.5 mg tablet 12.5 mg PO QAM 11/09/21 11/09/21 11/09/21 History metformin 500 mg tablet 500 mg PO QAM 11/09/21 11/09/21 11/09/21 History romosozumab-aqqg 105 mg/1.17 mL 105 mg SUBCUT Q30D 11/09/21 11/09/21 Unknown History subcutaneous syringe (Evenity) Allergies Allergy/AdvReac Type Severity Reaction Status Date / Time dulaglutide [From [facility]] AdvReac Mild ADV-Weaknes Verified 11/09/21 11:36 s Current Medications Generic Name Dose Route Start Last Admin Trade Name Freq PRN Reason Stop Dose Admin Albuterol/Ipratropium 3 ml 11/09/21 15:00 11/10/21 08:01 Ipratropium-Albuterol 3 Ml Neb INHALATION 3 ml Q6H.RESPIRATORY MARTIN Administration Aspirin 81 mg 11/10/21 06:00 11/10/21 06:10 Aspirin 81 Mg Ec Tablet PO 81 mg QAM MARTIN Administration Budesonide 0.5 mg 11/09/21 20:00 11/10/21 08:01 Budesonide 0.5 Mg/2 Ml Neb INHALATION 0.5 mg BID.RESPIRATORY MARTIN Administration calcium gluconate 0.9% NaCL 1 gm in 50 mls @ 100 mls/hr 11/09/21 14:00 11/09/21 14:57 Calcium Gluconate 0.9% Nacl IV 11/10/21 14:29 Infused Q30MIN MARTIN Infusion Imipenem/Cilastatin Sodium 250 100 mls @ 200 mls/hr 11/09/21 15:00 11/10/21 08:45 mg/ Sodium Chloride IV Infused Q6H MARTIN Infusion Sodium Chloride 1,000 mls @ 50 mls/hr 11/09/21 14:15 11/09/21 16:40 Sodium Chloride 0.9% IV 50 mls/hr .Q20H MARTIN Administration Insulin Human Lispro 0 unit 11/09/21 18:00 11/10/21 07:28 Insulin Lispro 100 Unit/1 Ml SUBCUT Not Given WM&BEDTIME MARTIN Protocol Metoprolol Tartrate 12.5 mg 11/10/21 09:00 11/10/21 08:38 Metoprolol Tartrate 25 Mg Tablet PO 12.5 mg BID@0900,2100 MARTIN Administration Mirtazapine 15 mg 11/09/21 21:00 11/09/21 20:31 Mirtazapine 15 Mg Tablet PO 15 mg BEDTIME MARTIN Administration Pantoprazole Sodium 40 mg 11/10/21 09:00 11/10/21 08:[address] 40 Mg Tablet PO 40 mg DAILY MARTIN Administration Pramipexole Dihydrochloride 0.25 mg 11/09/21 18:00 11/10/21 08:38 Pramipexole 0.25 Mg Tablet PO 0.25 mg BID MARTIN Administration Prednisone 40 mg 11/10/21 09:00 11/10/21 08:38 Prednisone 20 Mg Tablet PO 40 mg DAILY MARTIN Administration Trazodone HCl 100 mg 11/09/21 21:00 11/09/21 20:31 Trazodone 100 Mg Tablet PO 100 mg BEDTIME MARTIN Administration PFSH Acute PFSH: Medical History Carotid artery disease Coronary artery disease Depression with anxiety Diabetes mellitus GERD (gastroesophageal reflux disease) History of abdominal hernia Hyperlipidemia Hypertension Insomnia Obstructive sleep apnea Osteoporosis Peripheral vascular disease Tobacco dependency Urolithiasis UTI (urinary tract infection) Surgical History History of hernia repair Hx of appendectomy Hx of endarterectomy Hx of heart artery stent Hx of hysterectomy Family History Mother , IN HER 90'S. LYMPH NODE CANCER Diabetes Cancer Other CAD (coronary artery disease) Hypertension Social History Smoking and tobacco status: current every day smoker (1/2 pack daily) cigarettes Packs smoked per day: 0.5 Alcohol intake: former Marital status: Current occupational status: retired History of recent travel: No Vitals/I&O/Wt Last Vital Signs Temp 97.9 F 11/10/21 03:15 Pulse 76 11/10/21 08:04 Resp 16 11/10/21 08:04 BP 112/58 11/10/21 08:00 Pulse Ox 95 11/10/21 08:04 11/09/21 11/10/21 11/10/21 22:59 06:59 14:59 Intake Total 500 / 746.667 340 / 340 Output Total 700 / 700 200 / 200 Balance 500 / 746.667 -700 / 46.667 140 / 140 Weight last 48 hrs Weight 115 lb Weight 108 lb Physical Exam Narrative: GENERAL: The patient is alert and oriented times three. Slightly tachypneic. HEENT: No significant pallor, icterus or lymphadenopathy. The pupils are symmetrical. Oral cavity: There are no mucous membrane lesions. Funduscopic examination: Fundus is not visualized. NECK: Trachea appears to be central. No masses noted. Neck veins are prominent. Carotid endarterectomy scar on the right side. RESPIRATORY: Breath sounds are heard bilaterally with extensive expiratory wheezing and some coarse crackles. BREASTS: Deferred. HEART: The PMI could not be palpated. No other palpable precordial events. S1 and S2 are normal. No S3 or S4 heard. No pericardial rub or any click heard. ABDOMEN: No vessel pulsations or distention. No tenderness. No organomegaly appreciated. No abdominal bruit. Bowel sounds are normally heard. : Deferred. RECTAL: Deferred. LYMPHATIC: No lymphadenopathy noted in the neck or groin. EXTREMITIES: No edema or cyanosis. No clubbing. The dorsalis pedis and posterior pulses are weak bilaterally. MUSCULOSKELETAL: No acute joint deformities or swelling. SKIN: There are no significant scars or skin rash noted. NEUROPSYCHIATRIC: The patient is alert and oriented x3. Appears to be in a good mood. The higher functions are grossly within normal limits. No tremors or rigidity noted. Data : 11/10/21 02:48 11/10/21 02:48 Micro: Microbiology 11/09/21 13:24 Urine Culture - Preliminary Urine,Clean Catch Gram Negative Rods 11/09/21 13:56 Blood Culture - Preliminary Blood SPECIMEN COLLECTED 11/09/21 12:47 Blood Culture - Preliminary Blood SPECIMEN COLLECTED EKG 1: My Interpretation: EKG showed a sinus rhythm with frequent PVCs in the form of bigeminy. Possible left atrial enlargement. Features of old septal IN. Nonspecific ST-T changes. EKG computer-generated impression: Chest X-Ray 11/09/21 10:42 1. Patchy bibasilar airspace opacities, which may reflect atelectasis versus pneumonia. 2. Small bilateral pleural effusions. Renal Ultrasound 11/09/21 14:29 1. Mild atrophy RIGHT kidney similar to the prior study. 2. No hydronephrosis identified. 3. Small RIGHT pleural effusion. Carotid duplex dilation done on 08/25/2021. Right ICA stenosis <50%.? Prior Right CEA, no recurrent ?stenosis. Moderate atheromatous plaque right carotid bulb/ICA ?and CCA. ?Left ICA stenosis 50-69%. Moderate atheromatous plaque left ?carotid bulb/ICA and CCA Echocardiogram done on 11/09/2021 ?1. Normal left ventricular size and mildly decreased systolic ?function and wall thickness, with no regional wall motion ?abnormalities. Left ventricular ejection fraction is estimated ?at 45-50 %.? Mild global hypokinesis. ?2. Normal right ventricular size and systolic function. ?3. When compared to previous study dated 08/25/21, left ankle ?systolic function seems to have decreased. ?4. Interpretation is limited by frequent ectopy. A&P Assessment and plan (1) Atherosclerotic heart disease of [place] coronary artery with other forms of angina pectoris: Patient may be treated with heparin, beta-mike, aspirin, nitrates and other symptomatic measures. Once her respiratory status is stabilized, we may consider doing a cardiac catheterization to further evaluate her coronary status and decide on further management. Status: Acute (2) Acute on chronic diastolic (congestive) heart failure: Patient may be carefully treated with IV diuretics. Most likely the ischemia may be causing the heart failure. This needs to be further evaluated. Status: Acute (3) Elevated troponin: Possible type II IN. Status: Acute (4) COPD exacerbation: Bronchodilator therapy as per the primary Status: Acute (5) Hyperkalemia: This is being treated no normal normal Thanks Status: Acute (6) Ventricular arrhythmia: May be treated with beta-blockers, magnesium and correcting the electrolyte abnormalities Status: Acute Plan Other problems are Ongoing smoking abuse Acute kidney injury Carotid artery disease Dyslipidemia based on the results of the above tests and the patient's clinical progress, further recommendations will be made. Thank you for the opportunity to evaluate this patient and make these recommendations. Consult Attestations Medical Necessity Statement: Patient requires continued hospital stay for close monitoring and further management Coding Level of Care Code Acute Wood Calker for Izabela Fwhaven History Detailed Exam Detailed Medical Decision Making High Complexity Diagnoses Atherosclerotic heart disease of [place] coronary artery with other forms of angina pectoris I25.118 Acute on chronic diastolic (congestive) heart failure I50.33 Elevated troponin R77.8 COPD exacerbation J44.1 Hyperkalemia E87.5 Ventricular arrhythmia I49.9
[2021-11-10 09:59] LABS: Partial Thromboplastin Time 29.8 SECONDS (23.9-36.7)
--- NOTE | 2021-11-10 10:41 | PC.CHAP ---
Pastoral Care Encounter/Spiritual Assessment Type of Contact [] Declined security installation sales technician visit [] Patient/Family/Request visit [] Outpatient visit [] Follow-up visit [] Physician referral [] Code/Alert [x] Routine visit [] Staff referral [] Actively dying [x] Patient sleeping [] Family support [] [] Out of room [] Palliative care [] [] Receiving care in room [] Pre-surgical visit [] Trauma [] Long length of stay [x] ICU visit [] Other: Relational/Emotional Strength [] Patient feels connected with others/family/visitors/staff [] Distress [] Loneliness/isolation [] Abandonment Spirituality of Patient [] Person of Kathryn [] Attends Christianity of their Kathryn [] Believes in Prayer [] Reads Bible or Congregational materials [] There are Spiritual issues to be addressed Valuation Manager Interventions [x] Prayer [] Active listening [] Non-anxious presence [] Spiritual/emotional support [] Crisis/trauma care [] Spiritual counseling [] Bereavement support [] Provided bereavement packet [] Provided Bible/devotional materials [] Provided toy/stuffed animal, coloring book to patient or family member [] Provided Communion [] Anointing/Hemet [] Salvation [x] Completed spiritual assessment [] Other: Impact on Illness or Injury [] Angry [] Fearful [] Anxious [] Often cries [] Exhaustion [] Unable to work [] Unable to attend spiritism [] Unable to walk/stand [] Unable to read [] Unable to drive [] Unable to eat/drink [] Unable to sleep [] Unable to be with family [] Patient intubated [] Other: Summary Time spent with patient
[2021-11-10 11:32] LABS: Glucose Point of Care 181 mg/dL (70-110)
[2021-11-10] MEDS: heparin 5,000 unit/mL INJ 1 mL IV (11:40)
[2021-11-10] MEDS: heparin drip 25,000 UNIT/500 ML PREMIX 15 UNIT IV (11:40)
[2021-11-10 11:52] LABS: Ferritin 17 ng/mL (15-150); Iron 27 ug/dL (37-145); Percent Saturation 8.1 % (20-50); Total Iron Binding Capacity 332 mcg/dl; Unsaturated Iron Binding 305 ug/dL (112-347)
[2021-11-10 12:06] LABS: Folate Level 18.3 ng/mL (4.8-37.3)
[2021-11-10 12:07] LABS: Vitamin B12 189 pg/mL (232-1245)
[2021-11-10] MEDS: sodium chloride 0.9% 1,000 ML 50 ML IV (13:06)
[2021-11-10] MEDS: insulin lispro 100 unit/1 mL SUBCUT ×2 (13:07→18:38)
[2021-11-10 17:23] LABS: Glucose Point of Care 232 mg/dL (70-110)
[2021-11-10 17:54] LABS: Partial Thromboplastin Time 134.4 SECONDS (23.9-36.7)
--- NOTE | 2021-11-10 19:23 | PC.NURSE ---
Report called to NOBLE Sarmiento. Patient to go to room 276-1 by cnc machinist 2nd shift nurse NOBLE Roberts.
[2021-11-10] MEDS: mirtazapine 15 mg Tablet PO (21:21)
[2021-11-10] MEDS: trazodone 100 mg Tablet PO (21:22)
[2021-11-10 23:57] LABS: Partial Thromboplastin Time 81.6 SECONDS (23.9-36.7)
[2021-11-11] VITALS (15 sets, daily range): BP systolic 98–126; BP diastolic 59–82; PULSE 86–104; RESP 16–32; TEMP 36.4–36.8; O2SAT 88–96
[2021-11-11] MEDS: ipratropium-albuterol 3 mL Neb INHALATION ×4 (02:08→20:13)
[2021-11-11] MEDS: aspirin 81 mg EC Tablet PO (06:41)
[2021-11-11] MEDS: atorvastatin 40 mg Tablet PO (06:41)
--- NOTE | 2021-11-11 08:36 | PC.NURSE ---
Dr tobias at bedside with instructions to stop IV fluids
[2021-11-11] MEDS: budesonide 0.5 mg/2 mL Neb INHALATION ×2 (08:40→20:12)
--- NOTE | 2021-11-11 09:05 | P.PN_ITS ---
Subjective Subjective: Awakens easily. Reports some chest discomfort last night. Still short of breath. Able to eat some. Medications: Reviewed: Yes Vitals/I&O/Wt Last Vital Signs Temp 97.9 F 11/11/21 08:00 Pulse 92 11/11/21 08:53 Resp 18 11/11/21 08:00 BP 111/62 11/11/21 08:00 Pulse Ox 88 L 11/11/21 08:00 11/10/21 11/11/21 11/11/21 22:59 06:59 14:59 Intake Total 440 / 2185 245 / 2430 1092.167 / 1092.167 Output Total 400 / 800 Balance 40 / 1385 245 / 1630 1092.167 / 1092.167 Weight last 48 hrs Weight 52.163 kg Weight 48.988 kg Physical Exam Narrative: General exam no distress Cardiovascular regular rate and rhythm Lungs a few expiratory wheezes. Rhonchi are noted bibasilar Abdomen is soft with positive bowel sounds Extremities no cyanosis clubbing or edema Data : 11/10/21 02:48 11/10/21 02:48 Micro: Microbiology 11/09/21 16:50 MRSA Culture - Final Nose 11/09/21 13:56 Blood Culture - Preliminary Blood NEGATIVE TO DATE 11/09/21 12:47 Blood Culture - Preliminary Blood NEGATIVE TO DATE 11/09/21 13:24 Urine Culture - Preliminary Urine,Clean Catch Gram Negative Rods A&P Assessment and plan (1) Acute kidney injury: Patient was hypotensive, hyperkalemic, and recent doses of diuretic and NURIA inhibitor has been increased prior to presentation. Avoiding renal toxic medication, NURIA inhibitor held, diuretics held, slow fluids were given. Renal ultrasound showed no obstruction Await renal function testing today. Status: Acute (2) Elevated brain natriuretic peptide (BNP) level: Consistent with cardiac systolic dysfunction. I believe now she is having some issues with acute systolic heart failure. Hold further fluids. If renal function is improved may initiate gentle diuresis. Status: Acute (3) Chest pain: Patient has continued chest discomfort. She has past history of coronary disease. Cardiology has been consulted. Continue heparin, low-dose beta-mike, aspirin, statin Note that her echocardiogram demonstrates ejection fraction of 45%, lower than previous Angiogram is planned once renal function has improved Bigeminy present on admission has resolved with administration of magnesium for hypomagnesemia. Magnesium level pending today. Status: Acute (4) Hyperkalemia: Resolved. Awaiting lab today. Status: Acute (5) Anemia: Significant anemia. She is iron deficient as well as B12 deficient. Initiate B12 today. Consider iron transfusion, wants further evaluation from cardiac standpoint. Await stool Hemoccult Continue Protonix Status: Acute (6) UTI (urinary tract infection): Patient growing gram-negative rods. Past history of ESBL. Continue Primaxin currently. Renal ultrasound demonstrates no evidence of obstruction. Status: Acute (7) Pneumonia: MRSA PCR negative. Continue linezolid currently Wean oxygen as tolerated Status: Acute Plan Multiple other medical problems as outlined in past medical history Full code Heparin drip will suffice for DVT prophylaxis Attestations Medical Necessity Statement*: Needs continued hospitalization secondary to acute kidney injury, and definitive evaluation of chest discomfort with coronary angiogram. Coding Level of Care Code Acute Warhead Maintenance Specialist for [facility] Fwd Diagnoses Acute kidney injury N17.9 Elevated brain natriuretic peptide (BNP) level R79.89 Chest pain R07.9 Hyperkalemia E87.5 Anemia D64.9 UTI (urinary tract infection) N39.0 Pneumonia J18.9
[2021-11-11 09:22] LABS: Glucose Point of Care 256 mg/dL (70-110)
--- NOTE | 2021-11-11 09:27 | P.PN_ITS ---
Subjective Subjective: Patient has been having on and off chest pain. Says has been having these symptoms for the last 1 month Vitals/I&O/Wt Last Vital Signs Temp 97.9 F 11/11/21 08:00 Pulse 92 11/11/21 08:53 Resp 18 11/11/21 08:00 BP 111/62 11/11/21 08:00 Pulse Ox 88 L 11/11/21 08:00 11/10/21 11/11/21 11/11/21 22:59 06:59 14:59 Intake Total 440 / 2185 245 / 2430 1092.167 / 1092.167 Output Total 400 / 800 Balance 40 / 1385 245 / 1630 1092.167 / 1092.167 Weight last 48 hrs Weight 115 lb Weight 108 lb Physical Exam Narrative: GENERAL: Patient is alert, awake and oriented x3. [] NECK: No jugular vein distension. [] HEENT: No cyanosis. No icterus. No pallor. [] HEART: Regular S1 and S2. No murmur, rub or gallop. [] LUNGS: Clear to auscultate bilaterally. [] ABDOMEN: Soft, nontender and nondistended. Positive bowel sounds. No guarding, rebound or tenderness. [] CENTRAL NERVOUS SYSTEM: Grossly nonfocal. [] EXTREMITIES: Lower extremities with 1+ edema bilaterally. Pulses palpable in the lower extremities, both dorsalis pedis and posterior tibial. [] Data : 11/12/21 04:00 11/12/21 04:00 Micro: Microbiology 11/09/21 16:50 MRSA Culture - Final Nose 11/09/21 13:56 Blood Culture - Preliminary Blood NEGATIVE TO DATE 11/09/21 12:47 Blood Culture - Preliminary Blood NEGATIVE TO DATE 11/09/21 13:24 Urine Culture - Preliminary Urine,Clean Catch Gram Negative Rods A&P Assessment and plan (1) Atherosclerotic heart disease of [place] coronary artery with other forms of angina pectoris: Continue aspirin and heparin. Given her significant symptoms of on and off chest pain, plan for coronary angiogram with possible percutaneous coronary intervention tomorrow. NPO past midnight. Status: Acute (2) Acute on chronic diastolic (congestive) heart failure: Renal function has improved. Gentle diuresis Status: Acute (3) Elevated troponin: Likely demand ischemia as no significant uptrend but patient's symptoms are concerning for unstable angina Status: Acute (4) COPD exacerbation: Bronchodilator therapy as per the primary Status: Acute (5) Hyperkalemia: Resolved Status: Acute (6) Ventricular arrhythmia: May be treated with beta-blockers, magnesium and correcting the electrolyte abnormalities Status: Acute Plan Other problems are Ongoing smoking abuse Acute kidney injury Carotid artery disease Dyslipidemia Plan for coronary angiogram tomorrow. Thank you for involving us with care of this patient. We will continue to follow. Please call with questions Attestations Medical Necessity Statement*: Care expected to cross 2 midnights. Coding Level of Care Code Acute Silviculture Forester for Izabela Naranjo Diagnoses Atherosclerotic heart disease of [place] coronary artery with other forms of angina pectoris I25.118 Acute on chronic diastolic (congestive) heart failure I50.33 Elevated troponin R77.8 COPD exacerbation J44.1 Hyperkalemia E87.5 Ventricular arrhythmia I49.9
[2021-11-11] MEDS: pramipexole 0.25 mg Tablet PO ×2 (09:40→17:13)
[2021-11-11] MEDS: predniSONE 20 mg Tablet 40 MG PO (09:40)
[2021-11-11] MEDS: pantoprazole DR 40 mg Tablet PO (09:40)
[2021-11-11] MEDS: cyanocobalamin 1,000 mcg/mL SDV 1000 MCG IM (09:40)
[2021-11-11] MEDS: insulin lispro 100 unit/1 mL SUBCUT ×4 (09:41→21:09)
[2021-11-11] MEDS: metoprolol tartrate 25 mg Tablet 12.5 MG PO ×2 (09:46→21:08)
[2021-11-11 11:16] LABS: Basophils % 0.2 %; Eosinophils % 0.1 %; Hematocrit 27.3 % (37.0-47.0); Hemoglobin 9.1 g/dL (11.5-15.3); Lymphocytes % 8.3 %; Mean Corpuscular HGB Conc 33.3 g/dL (30.0-36.0); Mean Corpuscular Hemoglobin 29.2 pg (28.0-34.0); Mean Corpuscular Volume 87.5 fl (81-99); Mean Platelet Volume 10.3 fL (7.4-10.4); Monocytes # 0.9 10^3/uL (0.2-0.9); Monocytes % 7.6 %; Neutrophils # 10.18 10^3/uL (1.8-7.7); Neutrophils % 83.2 %; Nucleated Red Blood Cells % 0 %; Platelet Count 211 10^3/cmm (130-400); Red Blood Count 3.12 10^6/uL (4.1-5.3); Red Cell Distribution Width 14.4 % (12.1-15.1); White Blood Count 12.2 10^3/uL (4.0-10.0)
[2021-11-11 11:33] LABS: Blood Urea Nitrogen 23 mg/dL (8-23); Calcium 8.2 mg/dL (8.5-10.5); Carbon Dioxide 16 mmol/L (22-29); Chloride 101 mmol/L (98-107); Glucose 225 mg/dL (65-115); Osmolality Calculated 285 mOsm/kg (285-295); Sodium 132 mmol/L (136-145)
[2021-11-11 12:17] LABS: Glucose Point of Care 203 mg/dL (70-110)
[2021-11-11] MEDS: FUROsemide 10 mg/mL SDV 4mL 40 MG IVP (13:02)
--- NOTE | 2021-11-11 16:31 | ECG_ITS ---
[facility] Test Date: 2021-11-11 Pat Name: Zoe Friedman Department: Room: 276 Gender: Female Supervisor Research Shop: : 1945 Requested By: Home Cortes Order Number: [id number] Willy MD: Eula Box M.D. Measurements Intervals [place] Rate: 93 P: 58 SD: 148 QRS: 93 QRSD: 143 T: -51 QT: 406 QTc: 506 Interpretive Statements SINUS RHYTHM POSSIBLE LEFT ATRIAL ENLARGEMENT [-0.1mV P-WAVE IN V1/V2] RIGHT BUNDLE BRANCH BLOCK [120+ ms QRS DURATION, UPRIGHT V1, 40+ ms S IN I/aVL/V4/V5/V6] MODERATE T-WAVE ABNORMALITY, CONSIDER INFERIOR ISCHEMIA [-0.1+ mV T-WAVE IN II/aVF] Compared to ECG 11/11/2021 16:45:58 Right bundle-branch block now present T-wave abnormality now present Possible ischemia now present Right-axis deviation no longer present Intraventricular conduction delay no longer present Electronically Signed On 11-12-2021 5:50:18 CDT by Eula Box M.D. [id number]
[2021-11-11] MEDS: nitroglycerin 0.4 mg sublingual Tablet SUBLINGUAL (16:48)
--- NOTE | 2021-11-11 16:51 | PC.NURSE ---
Patient rounding patient noted with grimace patient reports 11/05 chest pain provider notified instructions to obtain EKG TRops and give sublingual nitro patient recovered after [address] velazquez at bed side for assessment of chest pain nitro paste 0.5 in Q6H orders received
[2021-11-11 16:55] LABS: Glucose Point of Care 240 mg/dL (70-110)
[2021-11-11] MEDS: nitroglycerin 1 gm/inch oint Pkt 0.5 INCH TOPICAL ×2 (17:12→23:33)
[2021-11-11] MEDS: enoxaparin 60 mg/0.6 mL Syringe 50 MG SUBCUT (17:12)
[2021-11-11 17:29] LABS: Troponin(5th) Baseline 51 ng/L (0-10)
--- NOTE | 2021-11-11 18:31 | ECG_ITS ---
[facility] Test Date: 2021-11-11 Pat Name: Zoe Friedman Department: Room: 276 Gender: Female Egg Buyer: : 1945 Requested By: Home Cortes Order Number: [id number] Willy MD: Eula Box M.D. Measurements Intervals [place] Rate: 96 P: 71 [place]: 156 QRS: 105 QRSD: 137 T: -56 QT: 378 QTc: 478 Interpretive Statements SINUS RHYTHM RIGHT AXIS DEVIATION [QRS AXIS > 100] INTRAVENTRICULAR CONDUCTION DELAY [130+ ms QRS DURATION] Compared to ECG 11/09/2021 18:01:37 Right-axis deviation now present Intraventricular conduction delay now present Right bundle-branch block no longer present T-wave abnormality no longer present Possible ischemia no longer present Electronically Signed On 11-12-2021 6:02:34 CDT by Eula Box M.D. [id number]
[2021-11-11 20:49] LABS: Glucose Point of Care 223 mg/dL (70-110)
[2021-11-11] MEDS: trazodone 100 mg Tablet PO (21:08)
[2021-11-11] MEDS: mirtazapine 15 mg Tablet PO (21:08)
[2021-11-11 21:26] LABS: Troponin 5 2HR 46.74 ng/L (0-10)
[2021-11-11 21:28] LABS: Troponin 5 2HR Delta -4.26 ABS# (0-10)
--- NOTE | 2021-11-11 22:31 | ECG_ITS ---
[facility] Test Date: 2021-11-11 Pat Name: Zoe Friedman Department: Room: 276 Gender: Female Middle Card Tender: : 1945 Requested By: Home Cortes Order Number: [id number] Willy MD: Tony Rebolledo M.D. Measurements Intervals [place] Rate: 92 P: 71 SD: 161 QRS: 95 QRSD: 145 T: -52 QT: 422 QTc: 524 Interpretive Statements SINUS RHYTHM BORDERLINE RIGHT AXIS DEVIATION [QRS AXIS > 90] INTRAVENTRICULAR CONDUCTION DELAY [130+ ms QRS DURATION] Compared to ECG 11/11/2021 18:24:16 Intraventricular conduction delay now present Right bundle-branch block no longer present T-wave abnormality no longer present Possible ischemia no longer present Electronically Signed On 11-12-2021 20:48:07 CDT by Tony Rebolledo M.D. [id number]
[2021-11-12] VITALS (13 sets, daily range): BP systolic 116–140; BP diastolic 60–75; PULSE 88–99; RESP 15–24; TEMP 36.3–36.8; O2SAT 91–100
[2021-11-12 00:30] LABS: Troponin 5 6HR 43.15 ng/L (0-10)
[2021-11-12] MEDS: ipratropium-albuterol 3 mL Neb INHALATION (03:10)
--- NOTE | 2021-11-12 03:30 | PC.NURSE ---
Patient reports feeling very short of breath after receiving scheduled breathing tx. Patient stated, I get this way everytime I have a breathing treatment. RT notified in with patient at this time.
[2021-11-12 04:29] LABS: Basophils % 0.1 %; Hematocrit 28.3 % (37.0-47.0); Hemoglobin 9.3 g/dL (11.5-15.3); Lymphocytes % 7.5 %; Mean Corpuscular HGB Conc 32.9 g/dL (30.0-36.0); Mean Corpuscular Hemoglobin 28.4 pg (28.0-34.0); Mean Corpuscular Volume 86.3 fl (81-99); Mean Platelet Volume 10.1 fL (7.4-10.4); Monocytes # 1.2 10^3/uL (0.2-0.9); Monocytes % 8.8 %; Neutrophils # 11.39 10^3/uL (1.8-7.7); Neutrophils % 83.1 %; Nucleated Red Blood Cells % 0 %; Platelet Count 231 10^3/cmm (130-400); Red Blood Count 3.28 10^6/uL (4.1-5.3); Red Cell Distribution Width 14.2 % (12.1-15.1); White Blood Count 13.7 10^3/uL (4.0-10.0)
[2021-11-12 04:53] LABS: Anion Gap 19.2 (5-19); Blood Urea Nitrogen 23 mg/dL (8-23); Calcium 8.7 mg/dL (8.5-10.5); Carbon Dioxide 19 mmol/L (22-29); Chloride 101 mmol/L (98-107); Glucose 198 mg/dL (65-115); Magnesium 2.1 mg/dL (1.7-2.3); Osmolality Calculated 289 mOsm/kg (285-295); Potassium 4.2 mmol/L (3.5-5.1); Sodium 135 mmol/L (136-145)
[2021-11-12] MEDS: nitroglycerin 1 gm/inch oint Pkt 0.5 INCH TOPICAL ×3 (05:44→18:22)
[2021-11-12] MEDS: aspirin 81 mg EC Tablet PO (05:44)
[2021-11-12] MEDS: atorvastatin 40 mg Tablet PO (05:44)
[2021-11-12] MEDS: diphenhydrAMINE 50 mg Capsule PO (05:44)
[2021-11-12 06:14] LABS: Glucose Point of Care 206 mg/dL (70-110)
--- NOTE | 2021-11-12 06:38 | XACV_ITS ---
Exam Room: [facility] Ht: 147 cm Wt: 52 kg BSA: 1.47 m2 Gender: Female : 1945 Any Known Allergies: Other Exam Priority: Routine Procedure(s): Procedure Description: Diagnostic procedure Procedure Description: Left Heart Catheterization Procedure Description: Coronary Angiography Diagnostic Cath Status: Urgent Diagnostic Findings * INDICATION: Unstable angina/LV dysfunction. * Left Main: moderate 40% stenosis, SHABBIR: 3 flow. * Proximal Left Anterior Descending to Mid Left Anterior Descending: critical 95% stenosis, SHABBIR: 3 flow. * Ostial * circumflex: subtotal occlusion, SHABBIR: 2 flow. * Proximal Right Coronary Artery to Mid Right Coronary Artery: critical 95% stenosis, SHABBIR: 2 flow. * Coronary angiography shows right dominance. Conclusions 1. Severe multivessel coronary artery disease including left main, proximal to mid LAD, Proximal to mid RCA stenosis. Ostial left circumflex artery is subtotally occluded. Recommendations * We do not have CT surgery backup in the hospital at this time. Will recommend transferring patient as we will need heart team approach and discussion to see if she is a good surgical candidate for CABG. * Continue aspirin. No Plavix. * Continue diuresis he also has elevated LVEDP. Interventional RX Recommendation: CABG Diagnostic RX Recommendation: CABG Pressures Phase:Rest AO : / ( 0 ) @ 8:44:00 AM 124 / 53 ( 80 ) @ 8:55:00 AM 80 / 54 ( 60 ) @ 9:07:00 AM LV : @ 9:07:00 AM Clinical Evaluation EBL: 5mL-10mL Procedural Details Procedure Consent Obtained. Pre-Procedure Time Out. Identified patient by full name and date of as verbalized by the patient/guarantor. Does the consent match the physician's order: Yes. Accurate & Complete Informed Consent: Yes. Inpatient/Outpatient History & Physical on Chart: Yes. If H&P is completed, is and addenduem needed: No; If yes, is the addendum complete: N/A. Visualize and Verify Site with Patient/Guarantor: N/A. Relevant Radiology Images available: N/A. Pre-op teaching completed and patient verbalized understanding. The risks, benefits, and alternatives of sedation and/or procedure were discussed by physician. The patient agrees to continue. Procedure started. [facility] Clinical Fraility Score: 4: Vulnerable. Weigh Box Tender Indications: Unstable Angina, LV dysfunction. Chest Pain Symptom Assessment: Typical Angina Symptoms. Cardiovascular Instability: No. Correct patient, site and procedure confirmed by cath team. PERRLA. Strong, equal hand disease education specialist bilaterally. Lungs clear x 5 lobes. IV Site on Arrival: 20 gauge in the right hand. IV Fluids: 0.9% NaCl at KVO. 800 mL infused prior to manufacturing lab technician. Pre Procedural Pulses: right radial was 1+. Oxygen started at 4liters/min via nasal canula. right radial was prepped with chloroprep then draped in the usual sterile fashion. right groin was prepped with chloroprep then draped in the usual sterile fashion. Equipment: 6F - Radial. Cardiac Cath Pack. ACIST Manifold Kit Model BT 2000. Heparinized Saline (2 units/mL), 1000 mL bag. Physician arrived. Physician scrubbed in. Immediate Pre-Procedure Time Out. Correct Patient: Yes; Correct Procedure: Yes; Correct Site: Yes; Correct Patient Position: Yes; Correct Supplies: Yes; Dried Flammable Prep: Yes; Blood Products Available: N/A;. Lidocaine 1% infiltrated to the right radial. Pt sat 88% on 5 lpm nasal cannula. Placed pt on oxymask at 10 lpm. Arterial access obtained. Wire and needle out. Unable to obtain radial access. MD attempting to gain access in the Radial artery. An attempt to gain access to the right radial artery was unsuccessful. Manual pressure was held as needed to stop the bleeding. Pressure dressing applied to right radial site. Lidocaine 1% infiltrated to the right groin. Arterial access obtained with micropuncture set. A 5 eritrean JL4 catheter in over wire. Multiple views taken of left coronary artery. Catheter removed over the standard wire. A 5 eritrean JR4 catheter in over wire. Catheter removed over the standard wire. EDP Sample taken: LV 111/1,24; HR: 91 BPM; SpO2: 92%. Pullback taken: LV Off; AO Off; Mean: , Peak to Peak: , SEP: ; HR: 87 BPM; SpO2: 93%. Catheter removed over the standard wire. Physician scrubbed out. A Manual Compression was successful obtaining hemostatsis at the Right Femoral artery insertion site. Sheath(s) removed and manual pressure held until hemostasis was achieved. Sterile 4x4 and Op-site applied to the puncture site. No oozing or hematoma noted. Post sheath removal instructions were given and the patient verbalized understanding. PERRLA. Strong, equal hand disease education specialist bilaterally. No VTE prophylaxis required. Contrast type used: Visipaque 320 mgI/mL, 500 mL bottle. Post-op diagnosis: severe multi vessel CAD. Complications: none. Estimated blood loss: 5mL-10mL. Total IV fluids: 50 mL. Medication's Wasted: Nitro = 50 mg. Medication's Wasted: Heparin = 2000 units. Post Procedure: Pulses reassessed and unchanged. Responsiveness - Normal response to verbal stimuli; alert and oriented, PERRLA. Airway - Unaffected, no intervention required; spontaneous ventilation. Circulation: W/N/L, pulses unchanged. Nausea/Vomiting: No. Procedure completed. Patient transferred by bed to [facility]. Vital chart was stopped. Access Site Site: Right Femoral artery Sheath Size: 6 Fr Hemostasis Method: Manual Compression Hemostasis Success: Successful Procedure Medications Start: 7:36 AM Stop: 7:36 AM Medication: Versed Amount: 1 mg Route: I.V. Start: 7:36 AM Stop: 7:36 AM Medication: Fentanyl Amount: 50 mcg Route: I.V. Start: 8:09 AM Stop: 8:09 AM Medication: Fentanyl Amount: 25 mcg Route: I.V. I, the attending physician, have reviewed and verified all procedure medications. Yes, all medications given per verbal order History/Risk Factors Hypertension: Yes Dyslipidemia: Yes Peripheral Arterial Disease (PAD): Yes Myocardial Infarction (HI): No Obesity: No Renal Disease: No Tobacco Use: Current/Recent(w/in 1 year) Prior Interventions PCI: Yes CABG: No Valve Surgery: No Report Signatures Finalized by Tony Rebolledo MD on 11/14/2021 09:37 PM
--- NOTE | 2021-11-12 07:20 | P.HPUD_ITS ---
Surgery/Procedure H&P Update DATE OF PROCEDURE: November 12, 2021 DATE H&P PERFORMED: 11/10/21 H&P UPDATE INFORMATION: I have reviewed H&P completed within last 30 days, I have examined patient prior to procedure and No changes to prior documentation PREOP DIAGNOSIS: Unstable angina/LV dysfunction PRIMARY INDICATION FOR PROCEDURE: Unstable angina/ LV dysfunction PLANNED PROCEDURE: Operation Date: 11/12/21 07:00 Proposed Procedures p Cardiac Catheterization(Left) - Tony Rebolledo M.D Possible percutaneous coronary intervention PATIENT REASSESSED PRIOR TO SEDATION, WITH NO CHANGE NOTED: Yes PHYSICAL EXAM: alert, oriented x 3, clear to auscultation bilaterally and regular rate & rhythm AIRWAY EVAL/ANESTHESIA PLAN: ASA III, Local Anesthesia, Risks, benefits & alternatives of sedation and/or procedure discussed and Patient agrees to co ntinue as planned ADDITIONAL INFORMATION: Moderate sedation
--- NOTE | 2021-11-12 07:25 | PC.NURSE ---
to laboratory animal caretaker via bed.
--- NOTE | 2021-11-12 09:21 | P.TS_ITS ---
Transfer Summary Providers Date of Admission: 11/09/21 12:22 Date of Discharge/Transfer: 11/12/21 Attending Provider at Admission: Home Schreiber MD Attending Provider at Transfer: Home Schreiber MD Primary Care Provider: Marlyn Fisher Transfer Plans: Anticipated date of transfer: 11/12/21 . Diagnoses at Discharge Discharge Diagnosis (1) Atherosclerotic heart disease of [place] coronary artery with other forms of angina pectoris: Status: Acute (2) Acute on chronic diastolic (congestive) heart failure: Status: Acute (3) Elevated troponin: Status: Acute (4) COPD exacerbation: Status: Acute (5) Hyperkalemia: Status: Acute (6) Ventricular arrhythmia: Status: Acute Reason for Visit Reason for Visit SOB Hospital Course Hospital Course Zoe is a 75-year-old white female who presented to the hospital with shortness of breath, cough, and weakness for the last month. On arrival to the emergency department she was in [facility]. She was found to be hyperkalemic, and in renal failure. Troponin was slightly high, at approximately 60. There was concern of pneumonia and UTI and she was placed on Primaxin as she had past history of UTI with ESBL. She was ultimately fully anticoagulated as delta troponin was positive. She was hydrated, and renal function improved. Cardiology was consulted, and believed an angiogram was needed. Renal function improved to a degree that angiogram was able to be performed on November 12, showing three-vessel disease. Best option was evaluation by cardiothoracic surgery, which we do not have at this time. For this reason cardiology recommended transfer to [place] and she was accepted by Dr. Negro. Other studies done while in the hospital demonstrated was renal ultrasound, demonstrating no obstruction. Urine culture ultimately grew ESBL. Echocardiogram was performed which d emonstrated EF of 45%, no severe valvular abnormalities. With correction of electrolyte abnormalities magnesium and potassium claudette went away. She was mildly anemic, and found to have low B12 and low iron saturation. No evidence of active GI bleeding was found. Secondary to concern of pneumonia and MRSA PCR was also done and negative. At time of transfer she was seriously ill, but deemed stable enough for transfer at this time. Physical Exam Narrative: General exam no distress Neck is supple no lymphadenopathy thyromegaly Cardiovascular regular rate and rhythm, sounds distant, no murmur Lungs diminished breath sounds bilaterally. Few faint wheezes Abdomen is soft with positive bowel sounds Extremities no cyanosis clubbing or edema, bandage present right groin, right wrist and angiogram site TS Data Studies Completed and Pending Pending at discharge Category Date Time Status [employer] request for service Routine Exams 11/12/21 06:38 Ordered Blood Culture Stat Lab 11/09/21 13:56 Results Sputum Culture and Gram Stain Routine Lab 11/09/21 16:17 Ordered Labs from last 24 hours 11/12/21 11/12/21 11/12/21 05:57 04:00 04:00 WBC 13.7 H RBC 3.28 L Hgb 9.3 L Hct 28.3 L MCV 86.3 MCH 28.4 MCHC 32.9 RDW 14.2 Plt Count 231 MPV 10.1 Neut % (Auto) 83.1 Lymph % (Auto) 7.5 [place] % (Auto) 8.8 Eos % (Auto) 0.0 Baso % (Auto) 0.1 Neut # (Auto) 11.39 H Lymph # (Auto) 1.0 [place] # (Auto) 1.2 H Eos # (Auto) 0.0 Baso # (Auto) 0.0 Nucleated RBC % (auto) 0 Nucleated RBCs # 0.0 APTT Sodium 135 L Potassium 4.2 Chloride 101 Carbon Dioxide 19 L Anion Gap 19.2 H BUN 23 Creatinine 1.2 H GFR Calculation Not Reportable Glucose 198 H POC Glucose 206 H Calculated Osmolality 289 Calcium 8.7 Magnesium 2.1 Troponin T Baseline Troponin T 120 Minute Delta Troponin T Troponin T Hi Sens 6Hr Troponin T Hi Sens 6Hr Delta 11/11/21 11/11/21 11/11/21 23:59 20:48 20:43 WBC RBC Hgb Hct MCV MCH MCHC RDW Plt Count MPV Neut % (Auto) Lymph % (Auto) [place] % (Auto) Eos % (Auto) Baso % (Auto) Neut # (Auto) Lymph # (Auto) [place] # (Auto) Eos # (Auto) Baso # (Auto) Nucleated RBC % (auto) Nucleated RBCs # APTT Sodium Potassium Chloride Carbon Dioxide Anion Gap BUN Creatinine GFR Calculation Glucose POC Glucose 223 H Calculated Osmolality Calcium Magnesium Troponin T Baseline Troponin T 120 Minute 46.74 H Delta Troponin T -4.26 L Troponin T Hi Sens 6Hr 43.15 H Troponin T Hi Sens 6Hr Delta -7.85 L 11/11/21 11/11/21 11/11/21 16:49 16:48 11:46 WBC RBC Hgb Hct MCV MCH MCHC RDW Plt Count MPV Neut % (Auto) Lymph % (Auto) [place] % (Auto) Eos % (Auto) Baso % (Auto) Neut # (Auto) Lymph # (Auto) [place] # (Auto) Eos # (Auto) Baso # (Auto) Nucleated RBC % (auto) Nucleated RBCs # APTT Sodium Potassium Chloride Carbon Dioxide Anion Gap BUN Creatinine GFR Calculation Glucose POC Glucose 240 H 203 H Calculated Osmolality Calcium Magnesium Troponin T Baseline 51 H Troponin T 120 Minute Delta Troponin T Troponin T Hi Sens 6Hr Troponin T Hi Sens 6Hr Delta 11/11/21 11/11/21 11/11/21 10:54 10:54 10:54 WBC 12.2 H RBC 3.12 L Hgb 9.1 L Hct 27.3 L MCV 87.5 MCH 29.2 MCHC 33.3 RDW 14.4 Plt Count 211 MPV 10.3 Neut % (Auto) 83.2 Lymph % (Auto) 8.3 [place] % (Auto) 7.6 Eos % (Auto) 0.1 Baso % (Auto) 0.2 Neut # (Auto) 10.18 H Lymph # (Auto) 1.0 [place] # (Auto) 0.9 Eos # (Auto) 0.0 Baso # (Auto) 0.0 Nucleated RBC % (auto) 0 Nucleated RBCs # 0.0 APTT 49.0 H Sodium 132 L Potassium 4.0 Chloride 101 Carbon Dioxide 16 L Anion Gap 19.0 BUN 23 Creatinine 1.2 H GFR Calculation Not Reportable Glucose 225 H POC Glucose Calculated Osmolality 285 Calcium 8.2 L Magnesium 2.0 Troponin T Baseline Troponin T 120 Minute Delta Troponin T Troponin T Hi Sens 6Hr Troponin T Hi Sens 6Hr Delta 11/11/21 08:47 WBC RBC Hgb Hct MCV MCH MCHC RDW Plt Count MPV Neut % (Auto) Lymph % (Auto) [place] % (Auto) Eos % (Auto) Baso % (Auto) Neut # (Auto) Lymph # (Auto) [place] # (Auto) Eos # (Auto) Baso # (Auto) Nucleated RBC % (auto) Nucleated RBCs # APTT Sodium Potassium Chloride Carbon Dioxide Anion Gap BUN Creatinine GFR Calculation Glucose POC Glucose 256 H Calculated Osmolality Calcium Magnesium Troponin T Baseline Troponin T 120 Minute Delta Troponin T Troponin T Hi Sens 6Hr Troponin T Hi Sens 6Hr Delta Completed Studies During Hospitalization Category Date Time Status XR chest 1V portable [id number] Stat Exams 11/09/21 10:42 Completed CV. echo limited [id number] Routine Ultrasound 11/09/21 14:01 Completed US renal BI* [id number] Routine Ultrasound 11/09/21 14:29 Completed Laboratory Last Values WBC 13.7 10^3/uL (4.0-10.0) H 11/12/21 04:00 RBC 3.28 10^6/uL (4.1-5.3) L 11/12/21 04:00 Hgb 9.3 g/dL (11.5-15.3) L 11/12/21 04:00 Hct 28.3 % (37.0-47.0) L 11/12/21 04:00 MCV 86.3 fl (81-99) 11/12/21 04:00 MCH 28.4 pg (28.0-34.0) 11/12/21 04:00 MCHC 32.9 g/dL (30.0-36.0) 11/12/21 04:00 RDW 14.2 % (12.1-15.1) 11/12/21 04:00 Plt Count 231 10^3/cmm (130-400) 11/12/21 04:00 MPV 10.1 fL (7.4-10.4) 11/12/21 04:00 Neut % (Auto) 83.1 % 11/12/21 04:00 Lymph % (Auto) 7.5 % 11/12/21 04:00 [place] % (Auto) 8.8 % 11/12/21 04:00 Eos % (Auto) 0.0 % 11/12/21 04:00 Baso % (Auto) 0.1 % 11/12/21 04:00 Neut # (Auto) 11.39 10^3/uL (1.8-7.7) H 11/12/21 04:00 Lymph # (Auto) 1.0 10^3/uL (0.8-4.8) 11/12/21 04:00 [place] # (Auto) 1.2 10^3/uL (0.2-0.9) H 11/12/21 04:00 Eos # (Auto) 0.0 10^3/uL (0.0-0.8) 11/12/21 04:00 Baso # (Auto) 0.0 10^3/uL (0.0-0.1) 11/12/21 04:00 Nucleated RBC % (auto) 0 % 11/12/21 04:00 Nucleated RBCs # 0.0 /100WBC 11/12/21 04:00 APTT 49.0 SECONDS (23.9-36.7) H 11/11/21 10:54 D-Dimer 1.05 ug/mIFEU (0-0.59) H 11/09/21 11:10 Sodium 135 mmol/L (136-145) L 11/12/21 04:00 Potassium 4.2 mmol/L (3.5-5.1) 11/12/21 04:00 Chloride 101 mmol/L (98-107) 11/12/21 04:00 Carbon Dioxide 19 mmol/L (22-29) L 11/12/21 04:00 Anion Gap 19.2 (5-19) H 11/12/21 04:00 BUN 23 mg/dL (8-23) 11/12/21 04:00 Creatinine 1.2 mg/dL (0.5-0.9) H 11/12/21 04:00 GFR Calculation Not Reportable 11/12/21 04:00 Glucose 198 mg/dL (65-115) H 11/12/21 04:00 POC Glucose 206 mg/dL (70-110) H 11/12/21 05:57 Calculated Osmolality 289 mOsm/kg (285-295) 11/12/21 04:00 Calcium 8.7 mg/dL (8.5-10.5) 11/12/21 04:00 Magnesium 2.1 mg/dL (1.7-2.3) 11/12/21 04:00 Iron 27 ug/dL (37-145) L 11/10/21 02:48 TIBC 332 mcg/dl 11/10/21 02:48 % Saturation 8.1 % (20-50) L 11/10/21 02:48 Unsat Iron Binding 305 ug/dL (112-347) 11/10/21 02:48 Ferritin 17 ng/mL (15-150) 11/10/21 02:48 Total Bilirubin 0.2 mg/dL (0.15-1.2) 11/10/21 02:48 AST 15 U/L (0-32) 11/10/21 02:48 ALT 17 U/L (0-33) 11/10/21 02:48 Alkaline Phosphatase 108 IU/L (35-105) H 11/10/21 02:48 Creatine Kinase 42 U/L (26-192) 11/09/21 11:10 Troponin T Baseline 51 ng/L (0-10) H 11/11/21 16:48 Troponin T 120 Minute 46.74 ng/L (0-10) H 11/11/21 20:48 Delta Troponin T -4.26 ABS# (0-10) L 11/11/21 20:48 Troponin T Hi Sens 6Hr 43.15 ng/L (0-10) H 11/11/21 23:59 Troponin T Hi Sens 6Hr Delta -7.85 ng/L (0-12) L 11/11/21 23:59 NT-Pro-B Natriuret Pep 68000 pg/mL (0-125) H 11/09/21 11:10 Total Protein 5.5 g/dL (6.6-8.7) L 11/10/21 02:48 Albumin 3.3 g/dL (3.5-5.2) L 11/10/21 02:48 Globulin 2.2 g/dL (1.3-4.6) 11/10/21 02:48 Vitamin B12 189 pg/mL (232-1245) L 11/10/21 02:48 Folate 18.3 ng/mL (4.8-37.3) 11/09/21 13:56 TSH 3.76 uIU/mL (0.27-4.20) 11/09/21 11:10 Urine Color Yellow (Yellow) 11/09/21 13:24 Urine Appearance Sl cloudy (CLEAR) A 11/09/21 13:24 Urine pH 5 (5-7) 11/09/21 13:24 Ur Specific [place] 1.005 (1.005-1.030) 11/09/21 13:24 Urine Protein Neg (Negative) 11/09/21 13:24 Urine Glucose (UA) Norm (Normal) 11/09/21 13:24 Urine Ketones Negative (Negative) 11/09/21 13:24 Urine Blood Neg (Negative) 11/09/21 13:24 Urine Nitrate Negative (Negative) 11/09/21 13:24 Urine Bilirubin Neg (Negative) 11/09/21 13:24 Urine Urobilinogen Norm mg/dL (Negative) 11/09/21 13:24 Ur Leukocyte Esterase 2+ (Negative) H 11/09/21 13:24 Urine RBC 0-4 /hpf (0-2) H 11/09/21 13:24 Urine WBC 80-100 /hpf (0-5) H 11/09/21 13:24 Ur Squamous Epith Cells 5-10 /hpf (0-5) H 11/09/21 13:24 Amorphous Sediment Not Reportable 11/09/21 13:24 Urine Bacteria 3+ /hpf (NONE) H 11/09/21 13:24 Coronavirus 229E (PCR) Not detected (NOT DETECT) 11/09/21 12:24 SARS-CoV-2 (PCR) Not detected (NOT DETECT) 11/09/21 12:24 Radiology Impressions Chest X-Ray 11/09/21 10:42 IMPRESSION: 1. Patchy bibasilar airspace opacities, which may reflect atelectasis versus pneumonia. 2. Small bilateral pleural effusions. Renal Ultrasound 11/09/21 14:29 IMPRESSION: 1. Mild atrophy RIGHT kidney similar to the prior study. 2. No hydronephrosis identified. 3. Small RIGHT pleural effusion. Recent Clincial Data Last Vital Signs Temp 97.8 F 11/12/21 07:14 Pulse 93 11/12/21 07:14 Resp 18 11/12/21 07:14 BP 116/62 11/12/21 07:14 Pulse Ox 99 11/12/21 07:14 Vital Signs Temp Pulse Resp BP Pulse Ox 11/12/21 07:14 97.8 F 93 18 116/62 99 11/12/21 04:48 91 11/12/21 04:00 97.4 F L 99 18 140/75 100 11/12/21 03:15 91 11/12/21 03:10 89 18 93 11/12/21 00:00 98.2 F 88 20 H 119/60 92 11/11/21 22:00 104 H Intake & Output/Weight 11/10/21 11/11/21 11/12/21 06/18/22 06:59 06:59 06:59 06:59 Intake Total 746.667 / 524.512 1498 / 2430 2700.134 / 2700.134 Output Total 700 / 700 800 / 800 280 / 280 Balance 46.667 / 46.667 1630 / 1630 2420.134 / 2420.134 Weight 52.163 kg 54.386 kg Vitals Last Vital Signs Temp 97.8 F 11/12/21 07:14 Pulse 93 11/12/21 07:14 Resp 18 11/12/21 07:14 BP 116/62 11/12/21 07:14 Pulse Ox 99 11/12/21 07:14 TS Medications Medications Acetaminophen (Acetaminophen 325 Mg Tablet) 650 mg PO Q6H PRN PRN Reason: MILD PAIN Albuterol/Ipratropium (Ipratropium-Albuterol 3 Ml Neb) 3 ml INHALATION Q6H.RESPIRATORY MARTIN Last Admin: 11/12/21 03:10 Dose: 3 ml Documented by: Aspirin (Aspirin 81 Mg Ec Tablet) 81 mg PO QAM MARTIN Last Admin: 11/12/21 05:44 Dose: 81 mg Documented by: Atorvastatin Calcium (Atorvastatin 40 Mg Tablet) 40 mg PO QAM MARTIN Last Admin: 11/12/21 05:44 Dose: 40 mg Documented by: Budesonide (Budesonide 0.5 Mg/2 Ml Neb) 0.5 mg INHALATION BID.RESPIRATORY MARTIN Last Admin: 11/11/21 20:12 Dose: 0.5 mg Documented by: Cyanocobalamin (Cyanocobalamin 1,000 Mcg Tablet) 1,000 mcg PO DAILY [facility] Dextrose (Dextrose 50% Syringe 50 Ml) 25 ml IVP ONCE PRN; Protocol PRN Reason: hypoglycemia protocol Dextrose (Dextrose 50% Syringe 50 Ml) 50 ml IVP PRN PRN; Protocol PRN Reason: hypoglycemia protocol Enoxaparin Sodium (Enoxaparin 60 Mg/0.6 Ml Syringe) 50 mg SUBCUT Q12H MARTIN Last Admin: 11/12/21 05:44 Dose: Not Given Documented by: Glucagon (Glucagon 1 Mg/Ml Inj 1 Ml) 1 mg IM ONCE PRN; Protocol PRN Reason: Adult Acute Hypoglycemia Prot. Imipenem/Cilastatin Sodium 250 (mg/ Sodium Chloride) 100 mls @ 200 mls/hr IV Q6H MARTIN Last Infusion: 11/12/21 03:10 Dose: Infused Documented by: Dextrose (D5w) 500 mls @ 100 mls/hr IV ONCE PRN; Protocol PRN Reason: Adult Acute Hypoglycemia Prot Insulin Human Lispro (Insulin Lispro 100 Unit/1 Ml) 0 unit SUBCUT WM&BEDTIME [facility]; Protocol Last Admin: 11/12/21 07:23 Dose: Not Given Documented by: Metoprolol Tartrate (Metoprolol Tartrate 25 Mg Tablet) 12.5 mg PO BID@0900,2100 [facility] Last Admin: 11/11/21 21:08 Dose: 12.5 mg Documented by: Mirtazapine (Mirtazapine 15 Mg Tablet) 15 mg PO BEDTIME [facility] Last Admin: 11/11/21 21:08 Dose: 15 mg Documented by: Nitroglycerin (Nitroglycerin 0.4 Mg Sublingual Tablet) 0.4 mg SUBLINGUAL Q5M PRN PRN Reason: CHEST PAIN Last Admin: 11/11/21 16:48 Dose: 0.4 mg Documented by: Nitroglycerin (Nitroglycerin 1 Gm/Inch Oint Pkt) 0.5 inch TOPICAL Q6H [facility] Last Admin: 11/12/21 05:44 Dose: 0.5 inch Documented by: Ondansetron HCl (Ondansetron 2 Mg/Ml Sdv 2 Ml) 4 mg IVP Q6H PRN PRN Reason: NAUSEA AND VOMITING Pantoprazole Sodium (Pantoprazole Dr 40 Mg Tablet) 40 mg PO DAILY [facility] Last Admin: 11/11/21 09:40 Dose: 40 mg Documented by: Pramipexole Dihydrochloride (Pramipexole 0.25 Mg Tablet) 0.25 mg PO BID [facility] Last Admin: 11/11/21 17:13 Dose: 0.25 mg Documented by: Prednisone (Prednisone 20 Mg Tablet) 40 mg PO DAILY [facility] Last Admin: 11/11/21 09:40 Dose: 40 mg Documented by: Trazodone HCl (Trazodone 100 Mg Tablet) 100 mg PO BEDTIME [facility] Last Admin: 11/11/21 21:08 Dose: 100 mg Documented by: Discontinued Medications Cyanocobalamin (Cyanocobalamin 1,000 Mcg/Ml Sdv) 1,000 mcg IM ONCE ONE Stop: 11/11/21 08:31 Last Admin: 11/11/21 09:40 Dose: 1,000 mcg Documented by: Diphenhydramine HCl (Diphenhydramine 50 Mg Capsule) 50 mg PO ONCE ONE Stop: 11/11/21 18:29 Last Admin: 11/11/21 21:54 Dose: Not Given Documented by: Diphenhydramine HCl (Diphenhydramine 50 Mg Capsule) 50 mg PO ONCE ONE Stop: 11/12/21 06:01 Last Admin: 11/12/21 05:44 Dose: 50 mg Documented by: Fentanyl (Fentanyl 50 Mcg/Ml Inj 2ml) Confirm Administered Dose 100 mcg .ROUTE .STK-MED ONE Stop: 11/12/21 07:36 Furosemide (Furosemide 10 Mg/Ml Sdv 4ml) 40 mg IVP ONCE ONE Stop: 11/09/21 12:23 Last Admin: 11/09/21 12:33 Dose: 40 mg Documented by: Furosemide (Furosemide 10 Mg/Ml Sdv 4ml) 40 mg IVP ONCE ONE Stop: 11/11/21 12:06 Last Admin: 11/11/21 13:02 Dose: 40 mg Documented by: Furosemide (Furosemide 10 Mg/Ml Sdv 4ml) 40 mg IVP ONCE ONE Stop: 11/12/21 09:10 Heparin Sodium (Porcine) (Heparin 5,000 Unit/Ml Inj 1 Ml) 5,000 unit SUBCUT Q12H [facility] Last Admin: 11/10/21 03:14 Dose: 5,000 unit Documented by: Heparin Sodium (Porcine) (Heparin 5,000 Unit/Ml Inj 1 Ml) 0 unit IV PRN PRN; Protocol PRN Reason: Heparin weight-base protocol Last Admin: 11/10/21 11:40 Dose: 2,600 unit Documented by: Heparin Sodium (Porcine) (Heparin 5,000 Unit/Ml Inj 1 Ml) Confirm Administered Dose 5,000 unit .ROUTE .STK-MED ONE Stop: 11/12/21 06:30 Heparin Sodium (Porcine) (Heparin 5,000 Unit/Ml Inj 1 Ml) Confirm Administered Dose 5,000 unit .ROUTE .STK-MED ONE Stop: 11/12/21 07:44 Levofloxacin/Dextrose (Levaquin-D5w) 750 mg in 150 mls @ 100 mls/hr IV ONCE ONE; Protocol Stop: 11/09/21 13:12 Last Infusion: 11/09/21 13:19 Dose: Infused Documented by: calcium gluconate 0.9% NaCL (Calcium Gluconate 0.9% Nacl) 1 gm in 50 mls @ 100 mls/hr IV Q30MIN [facility] Stop: 11/10/21 14:29 Last Infusion: 11/09/21 14:57 Dose: Infused Documented by: Sodium Chloride (Sodium Chloride 0.9%) 1,000 mls @ 50 mls/hr IV .Q20H [facility] Last Infusion: 11/11/21 08:35 Dose: Infused Documented by: Sodium Chloride (Sodium Chloride 0.9%) 250 mls @ 250 mls/hr IV ONCE ONE Stop: 11/09/21 15:31 Last Infusion: 11/09/21 15:53 Dose: Infused Documented by: Magnesium Sulfate (Magnesium Sulfate Premix) 2 gm in 50 mls @ 50 mls/hr IV ONCE ONE Stop: 11/09/21 15:55 Last Infusion: 11/09/21 16:20 Dose: Infused Documented by: Magnesium Sulfate (Magnesium Sulfate Premix) 2 gm in 50 mls @ 50 mls/hr IV ONCE ONE Stop: 11/10/21 08:15 Last Infusion: 11/10/21 12:04 Dose: Infused Documented by: Heparin Sodium/Sodium Chloride (Heparin Drip) 25,000 unit in 500 mls @ 0 mls/hr IV .Q0M [facility]; Protocol Last Titration: 11/11/21 12:23 Dose: Infused Documented by: Lidocaine HCl (Lidocaine 1%) Confirm Administered Dose 5 mls @ as directed .ROUTE .STK-MED ONE Stop: 11/12/21 07:35 Lidocaine HCl (Lidocaine 1%) Confirm Administered Dose 10 mls @ as directed .ROUTE .STK-MED ONE Stop: 11/12/21 07:48 Midazolam HCl (Midazolam 1 Mg/Ml Inj 2 Ml) Confirm Administered Dose 2 mg .ROUTE .STK-MED ONE Stop: 11/12/21 07:36 Nitroglycerin (Nitroglycerin 5 Mg/Ml Sdv 10 Ml) Confirm Administered Dose 50 mg .ROUTE .STK-MED ONE Stop: 11/12/21 07:36 Ondansetron HCl (Ondansetron 2 Mg/Ml Sdv 2 Ml) 4 mg IVP Q6H PRN PRN Reason: NAUSEA AND VOMITING Sodium Polystyrene Sulfonate (Sodium Polystyrene Sulfonate 15 Gm/60 Ml Btl) 30 gm PO ONCE ONE Stop: 11/09/21 12:23 Last Admin: 11/09/21 12:33 Dose: 30 gm Documented by: Allergies dulaglutide [From [facility]] Adverse Reaction (Mild, Verified 11/09/21 11:36) ADV-Weakness NAUSEA,DIARRHEA Home Medications aspirin 81 mg tablet,delayed release (Adult Aspirin Regimen) 81 mg PO QAM 12/24/20 [History Confirmed 11/09/21] atorvastatin 40 mg tablet 40 mg PO QAM 12/24/20 [History Confirmed 11/09/21] cholecalciferol (vitamin D3) 50 mcg (2,000 unit) capsule 50 mcg PO QAM 12/24/20 [History Confirmed 11/09/21] mirtazapine 15 mg tablet 15 mg PO BEDTIME 12/24/20 [History Confirmed 11/09/21] potassium chloride 10 mEq capsule,extended release 10 meq PO QAM 12/24/20 [History Confirmed 11/09/21] pramipexole 0.25 mg tablet 0.25 mg PO BID 12/24/20 [History Confirmed 11/09/21] trazodone 100 mg tablet 100 mg PO BEDTIME 12/24/20 [History Confirmed 11/09/21] omeprazole 40 mg capsule,delayed release 40 mg PO QAM 01/27/21 [History Confirmed 11/09/21] magnesium chloride 64 mg (magnesium chloride) tablet,delayed release 64 mg PO QAM 02/04/21 [History Confirmed 11/09/21] lisinopril 20 mg tablet 20 mg PO BID tab 06/01/21 [History Confirmed 11/09/21] naproxen sodium 220 mg capsule (Aleve) 220 mg PO BID PRN 06/01/21 [History Confirmed 11/09/21] amlodipine 10 mg tablet 10 mg PO BID #180 tab 08/05/21 [Rx Confirmed 11/09/21] furosemide 20 mg tablet (Lasix) 40 mg PO QAM tab 08/09/21 [History Confirmed 11/09/21] metoprolol succinate 100 mg tablet,extended release 24 hr 100 mg PO QAM #90 tab 10/06/21 [Rx Confirmed 11/09/21] hydrochlorothiazide 12.5 mg tablet 12.5 mg PO QAM 11/09/21 [History Confirmed 11/09/21] metformin 500 mg tablet 500 mg PO QAM 11/09/21 [History Confirmed 11/09/21] romosozumab-aqqg 105 mg/1.17 mL subcutaneous syringe (Evenity) 105 mg SUBCUT Q30D 11/09/21 [History Confirmed 11/09/21] Discharge Plan Discharge Patient Disposition: Xfer Short-Term Hosp Condition: Stable Prescriptions: No Action naproxen sodium [Aleve] 220 mg capsule 220 mg PO BID PRN (Reason: Pain) 0RF lisinopril 20 mg tablet 20 mg PO BID 0RF trazodone 100 mg tablet 100 mg PO BEDTIME 0RF cholecalciferol (vitamin D3) 50 mcg (2,000 unit) capsule 50 mcg PO QAM 0RF atorvastatin 40 mg tablet 40 mg PO QAM 0RF mirtazapine 15 mg tablet 15 mg PO BEDTIME 0RF aspirin [Adult Aspirin Regimen] 81 mg tablet,delayed release (DR/EC) 81 mg PO QAM 0RF pramipexole 0.25 mg tablet 0.25 mg PO BID 0RF potassium chloride 10 mEq capsule, extended release 10 meq PO QAM 0RF magnesium chloride 64 mg tablet,delayed release (DR/EC) 64 mg PO QAM 0RF amlodipine 10 mg tablet 10 mg PO BID Qty: 180 3RF furosemide [Lasix] 20 mg tablet 40 mg PO QAM 0RF metoprolol succinate 100 mg tablet extended release 24 hr 100 mg PO QAM Qty: 90 3RF omeprazole 40 mg Capsule,Delayed Release(Dr/Ec) 40 mg PO QAM 0RF metformin 500 mg tablet 500 mg PO QAM 0RF hydrochlorothiazide 12.5 mg tablet 12.5 mg PO QAM 0RF Evenity 105 mg/1.17 mL Syringe 105 mg SUBCUT Q30D 0RF Rx Instructions: due to get December 02 Discharge Orders: Transfer Out of Facility (Order); Ordered 11/12/21 Ordered By: Home Schreiber Referrals: Marlyn Fisher PA [Primary Care Provider] - Transfer Attestations Time Spent in Transfer Care: greater than 30 min Quality Metrics Clinical Quality Measures [ Acute Myocardial Infaction { Clinical Trial Participant: No; Contraindication to aspirin: None; Aspirin prescribed; Contraindication to statin: None; Statin prescribed; Contraindication to PCI: Intervention not indicated;}] Coding Level of Care Code Acute Operator Receptionist for Chg Fwd Diagnoses Atherosclerotic heart disease of [place] coronary artery with other forms of angina pectoris I25.118 Acute on chronic diastolic (congestive) heart failure I50.33 Elevated troponin R77.8 COPD exacerbation J44.1 Hyperkalemia E87.5 Ventricular arrhythmia I49.9
--- NOTE | 2021-11-12 09:26 | PM.PN ---
Subjective Subjective: Patient underwent coronary angiogram this AM that showed severe multivessel coronary artery disease with 40-50% proximal left main artery stenosis, 90% proximal to mid LAD stenosis. Subtotal occlusion of the ostial left circumflex artery and severe 80-90 long RCA stenosis. No chest pain this AM Vitals/I&O/Wt Last Vital Signs Temp 97.8 F 11/12/21 07:14 Pulse 93 11/12/21 07:14 Resp 18 11/12/21 07:14 BP 116/62 11/12/21 07:14 Pulse Ox 99 11/12/21 07:14 11/11/21 11/12/21 11/12/21 22:59 06:59 14:59 Intake Total 560 / 1880.134 820 / 2700.134 Output Total 0 / 280 Balance 560 / 1600.134 820 / 2420.134 Weight last 48 hrs Weight 119 lb 14.4 oz Physical Exam Narrative: GENERAL: Patient is alert, awake and oriented x3. [] NECK: No jugular vein distension. [] HEENT: No cyanosis. No icterus. No pallor. [] HEART: Regular S1 and S2. No murmur, rub or gallop. [] LUNGS: Mild wheezing ABDOMEN: Soft, nontender and nondistended. Positive bowel sounds. No guarding, rebound or tenderness. [] CENTRAL NERVOUS SYSTEM: Grossly nonfocal. [] EXTREMITIES: Lower extremities with 1+ edema bilaterally. Pulses palpable in the lower extremities, both dorsalis pedis and posterior tibial. 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 Given her significant symptoms of on and off chest pain concerning for unstable angina, she had coronary angiogram performed this AM. Has severe triple vessel CAD, as we do not have CT surgery back up will transfer patient for heart team discussion and CT surgery evaluation Status: Acute (2) Acute on chronic diastolic (congestive) heart failure: Renal function has improved. Gentle diuresis. LVEPD was elevated on cath. Status: Acute (3) Elevated troponin: No significant uptrend. Has unstable angina Status: Acute (4) COPD exacerbation: Bronchodilator therapy as per the primary Status: Acute (5) Hyperkalemia: Resolved Status: Acute (6) Ventricular arrhythmia: May be treated with beta-blockers, magnesium and correcting the electrolyte abnormalities Status: Acute Plan Other problems are Ongoing smoking abuse Acute kidney injury Carotid artery disease Dyslipidemia Plan for transfer patient for CT surgery evaluation and heart team approach for CABG vs multivessel PCI. Thank you for involving us with care of this patient.Please call with questions Attestations Medical Necessity Statement*: Care expected to cross 2 midnights. 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
[2021-11-12] MEDS: FUROsemide 10 mg/mL SDV 4mL 40 MG IVP (09:35)
[2021-11-12 11:40] LABS: Glucose Point of Care 196 mg/dL (70-110)
[2021-11-12] MEDS: insulin lispro 100 unit/1 mL SUBCUT ×2 (12:18→18:22)
[2021-11-12] MEDS: ALPRAZolam 0.5 mg Tablet 0.25 MG PO ×2 (13:58→20:30)
--- NOTE | 2021-11-12 15:11 | PC.SOCIAL ---
IMM UPDATED IMM dated and initialed and copy given to patient and placed in chart
[2021-11-12 17:03] LABS: Glucose Point of Care 162 mg/dL (70-110)
[2021-11-12] MEDS: enoxaparin 60 mg/0.6 mL Syringe 50 MG SUBCUT (18:21)
[2021-11-12] MEDS: pramipexole 0.25 mg Tablet PO (18:23)
--- NOTE | 2021-11-12 20:16 | PC.NURSE ---
Patient to transfer to [facility] in [place], [place]. Report called to NOBLE Patterson at this time. Night medications to be administered as ordered prior to transfer.
[2021-11-12] MEDS: trazodone 100 mg Tablet PO (20:30)
[2021-11-12] MEDS: metoprolol tartrate 25 mg Tablet 12.5 MG PO (20:30)
[2021-11-12] MEDS: mirtazapine 15 mg Tablet PO (20:31)
--- NOTE | 2021-11-12 21:22 | PC.NURSE ---
Patient taken by [facility] at this time. New 22g IV placed to left forearm prior to discharge. Informed [facility] of patient leaving in route to them.
[2021-11-12 22:22] LABS: Glucose Point of Care 172 mg/dL (70-110)
== END 2021-11-12 21:26 | disposition short-term general hospital (02) | DRG 286 ==
LOC: ER 11:30 → ICU 14:40 → MEDSURG 11-10 19:43
PROVIDERS: Internal Medicine; Admitting Provider Internal Medicine; Emergency Provider Family Medicine; PCP Physician Assistant; Visit Provider Internal Medicine
PROC: 4A023N7 Measurement of Cardiac Sampling and Pressure, Left Heart, Percutaneous Approach (ICD-10-PCS; principal; 2021-11-12 07:00)
DX: I25.110 Atherosclerotic heart disease of native coronary artery with unstable angina pectoris (principal); I50.33 Acute on chronic diastolic (congestive) heart failure; I13.0 Hypertensive heart and chronic kidney disease with heart failure and stage 1 through stage 4 chronic kidney disease, or unspecified chronic kidney disease; J44.1 Chronic obstructive pulmonary disease with (acute) exacerbation; J44.0 Chronic obstructive pulmonary disease with (acute) lower respiratory infection; N39.0 Urinary tract infection, site not specified; N17.9 Acute kidney failure, unspecified; N18.9 Chronic kidney disease, unspecified; E11.22 Type 2 diabetes mellitus with diabetic chronic kidney disease; E78.5 Hyperlipidemia, unspecified; Z87.440 Personal history of urinary (tract) infections; F17.210 Nicotine dependence, cigarettes, uncomplicated; E87.5 Hyperkalemia; F41.8 Other specified anxiety disorders; E11.51 Type 2 diabetes mellitus with diabetic peripheral angiopathy without gangrene; K21.9 Gastro-esophageal reflux disease without esophagitis; Z79.84 Long term (current) use of oral hypoglycemic drugs; Z79.82 Long term (current) use of aspirin; B96.20 Unspecified Escherichia coli [E. coli] as the cause of diseases classified elsewhere; I95.9 Hypotension, unspecified; I49.3 Ventricular premature depolarization; I65.23 Occlusion and stenosis of bilateral carotid arteries; E83.42 Hypomagnesemia; I42.9 Cardiomyopathy, unspecified; D63.1 Anemia in chronic kidney disease; M81.0 Age-related osteoporosis without current pathological fracture; G47.33 Obstructive sleep apnea (adult) (pediatric); G47.00 Insomnia, unspecified
CPT/HCPCS: 36415; 36416; 36592; 71045; 71046; 76770; 80048; 80053; 81001; 82274; 82550; 82607; 82728; 82746; 82962; 83540; 83550; 83735; 83880; 84443; 84484; 85025; 85378; 85730; 87040; 87077; 87086; 87186; 87635; 87641; 93005; 93308; 93452; 93458; 94640; 96360; 96365; 96366; 96367; 96372; 99152; 99153; 99285; C1769; C1887; C1894; J0610; J0743; J1644; J1650; J1815; J1940; J1956; J2250; J3010; J3420; J3475; J3490; J7030; J7050; J7512; J7626; Q0163; Q9967

== ENCOUNTER 2021-11-09 11:29 | Outpatient (CLI) | payer MEDICARE, SELFPAY ==
--- NOTE | 2021-11-09 | XR_ITS ---
WS: [email or web address] PROCEDURE: XR chest 2V* [id number] CLINICAL INFORMATION: SHORTNESS OF BREATH X 1 MONTH COMPARISON: January 27, 2021 FINDINGS: Heart: Cardiomegaly. Aortic calcification. Lungs: Moderate chronic emphysematous changes. Bibasilar atelectasis. Small bilateral pleural effusio ns LEFT greater than RIGHT. Bones: Moderate thoracic kyphosis with chronic anterior wedging and compression in the mid and lower thoracic spine. Osteopenia. XR/XR chest 2V* [id number] IMPRESSION: 1. Cardiomegaly. Aortic calcification. 2. Moderate chronic emphysematous changes. 3. Slight interstitial infiltrates/subsegmental atelectasis in the lung bases. 4. Small LEFT greater than RIGHT pleural effusions. 5. Chronic appearing thoracic kyphosis with chronic compression and anterior a wedging in the mid and lower thoracic spine.
== END 2021-11-09 11:30 | disposition home or self-care (01) ==
LOC: RADOUTREAD 11:31
PROVIDERS: PCP Physician Assistant; Visit Provider Physician Assistant
DX: R06.02 Shortness of breath (principal)
CPT/HCPCS: 71046

== ENCOUNTER → 2022-01-13 13:52 | Outpatient (BNVA) | payer MEDICARE, SELFPAY | PROVIDERS: PCP Physician Assistant; Visit Provider Internal Medicine | DX: I25.10 Atherosclerotic heart disease of native coronary artery without angina pectoris (principal); E78.5 Hyperlipidemia, unspecified; I10 Essential (primary) hypertension; Z87.891 Personal history of nicotine dependence | CPT/HCPCS: 99214 ==

== ENCOUNTER → 2022-02-09 09:00 | Outpatient (BNVA) | payer MEDICARE, SELFPAY | PROVIDERS: PCP Physician Assistant; Referring Provider Internal Medicine; Visit Provider Internal Medicine Pulmonary Disease | DX: R06.09 Other forms of dyspnea (principal); Z87.891 Personal history of nicotine dependence; J45.909 Unspecified asthma, uncomplicated; G47.19 Other hypersomnia; I25.10 Atherosclerotic heart disease of native coronary artery without angina pectoris; J44.1 Chronic obstructive pulmonary disease with (acute) exacerbation; I50.33 Acute on chronic diastolic (congestive) heart failure | CPT/HCPCS: 99204 ==

== ENCOUNTER 2022-02-15 10:56 | Outpatient (CLI) | payer MEDICARE, SELFPAY ==
[2022-02-15 12:02] LABS: Basophils # 0.1 10^3/uL (0.0-0.1); Basophils % 0.8 %; Eosinophils # 0.2 10^3/uL (0.0-0.8); Eosinophils % 2.2 %; Hematocrit 32.4 % (37.0-47.0); Hemoglobin 10.1 g/dL (11.5-15.3); Lymphocytes # 1.6 10^3/uL (0.8-4.8); Mean Corpuscular HGB Conc 31.2 g/dL (30.0-36.0); Mean Corpuscular Hemoglobin 24.6 pg (28.0-34.0); Mean Corpuscular Volume 78.8 fl (81-99); Mean Platelet Volume 9.2 fL (7.4-10.4); Monocytes # 1.1 10^3/uL (0.2-0.9); Monocytes % 11.4 %; Neutrophils # 6.27 10^3/uL (1.8-7.7); Neutrophils % 68.3 %; Nucleated Red Blood Cells % 0 %; Platelet Count 318 10^3/cmm (130-400); Red Blood Count 4.11 10^6/uL (4.1-5.3); Red Cell Distribution Width 15.9 % (12.1-15.1); White Blood Count 9.2 10^3/uL (4.0-10.0)
[2022-02-16 15:43] LABS: Alternaria Alternata (M6) Ige <0.10 kU/L; Alternaria Class 0; Bermuda Class 0; Bermuda Grass (G2) Ige <0.10 kU/L; Cat Dander (E1) Ige <0.10 kU/L; Cat Dander Class 0; Common Ragweed (Short) (W1) Ig <0.10 kU/L; D. Farinae Class 0; Dermatophagoides Class 0; Dermatophagoides Farinae (D2) <0.10 kU/L; Dermatophagoides Pteronyssinus <0.10 kU/L; Dog Dander (E5) Ige <0.10 kU/L; Dog Dander Class 0; Elm (T8) Ige <0.10 kU/L; Elm Class 0; English Plantain (W9) Ige <0.10 kU/L; English Plantain Class 0; House Dust (Greer) (H1) Ige <0.10 kU/L; House Dust (Hollister- Stier) <0.10 kU/L; House Dust Class 0; Immunoglobulin E 19 kU/L (<OR=114); Immunoglobulin E 20 kU/L (<OR=114); Johnson Grass (G10) Ige <0.10 kU/L; Johnson Grass Cl 0; June Grass Class 0; June Grass(Kentucky Blue) (G8) <0.10 kU/L; Lamb'S Quarters (Goose Foot) <0.10 kU/L; Lamb'S Quarters Class 0; Maple (Box Elder) (T1) Ige <0.10 kU/L; Maple Class 0; Meadow Fescue (G4) Ige <0.10 kU/L; Meadow Fescue Class 0; Mucor Racemosus Class 0; Oak (T7) Ige <0.10 kU/L; Oak Class 0; Orchard Grass (Cocksfoot) (G3) <0.10 kU/L; Penicillium Class 0; Penicillium Notatum (M1) Ige <0.10 kU/L; Perennial Rye Grass (G5) Ige <0.10 kU/L; Perennial Rye Grass Class 0; Ragweeed Class 0; Rough Marsh Elder (W16) Ige <0.10 kU/L; Rough Marsh Elder Class 0; Sweet Vernal Class 0; Sweet Vernal Grass (G1) Ige <0.10 kU/L; Timothy Grass (G6) Ige <0.10 kU/L; Timothy Grass Class 0
[2022-02-17 20:07] LABS: Aspergillus Fumigatus, Igg Ab, 4.6 mg/L (<=102)
== END 2022-02-15 10:57 | disposition home or self-care (01) ==
LOC: LAB 11:00
PROVIDERS: PCP Physician Assistant; Visit Provider Internal Medicine Pulmonary Disease
DX: J45.909 Unspecified asthma, uncomplicated (principal)
CPT/HCPCS: 36415; 82785; 85025; 86003

== ENCOUNTER 2022-02-16 07:00 | Outpatient (CLI) | payer MEDICARE, SELFPAY ==
--- NOTE | 2022-02-16 07:15 | USCV_ITS ---
Zoe Friedman Age: 76 Gender: F : 1945 Exam Date: 02/16/2022 07:24 Ordering Phys: Tony Rebolledo M.D ([email or web address]) Technologist: DOLORES [place] [facility] [place]: [place] Risk Factors: Previous Vascular Surgery: Right Brachial BP: / Left Brachial BP: / Right Left Velocity (cm/s) Spectral Plaque Velocity (cm/s) Spectral Plaque Syst/Diast Broadening Syst/Diast Broadening 34.70/ 9.60 Prox CCA 78.60 / 15.40 71.60/ 13.80 Mid CCA 57.20 / 12.50 86.30/ 17.90 Distal CCA 80.20 / 18.40 140.70/17.10 Prox ICA 292.10/ 74.60 109.10/15.80 Mid ICA 254.80/ 55.90 80.80/ 14.80 Distal ICA 122.30/ 11.80 167.00 ECA 135.20 1.63 ICA/CCA 3.64 Vertebral 84.70/ 17.90 cm/s 56.80/ 15.50 cm/s Subclavian 122.3 131.5 0 0 CONCLUSIONS Right ICA stenosis 50-69%. Prior Right CEA. Moderate atheromatous Calcified plaque right carotid bulb/ICA. Left ICA stenosis 70-99%. Severe atheromatous calcified plaque left carotid bulb/ICA. Velocites Bilateral have progressed since 08/17. Recommend further evaluation with CTA Normal antegrade Doppler flow noted in the right vertebral artery. Normal antegrade Doppler flow noted in the left vertebral artery. Robel Jauregui MD (Electronically Signed) Final Date: 16 February 2022 12:24 S
== END 2022-02-16 07:01 | disposition home or self-care (01) ==
LOC: RAD 07:01
PROVIDERS: PCP Physician Assistant; Visit Provider Internal Medicine
DX: I25.10 Atherosclerotic heart disease of native coronary artery without angina pectoris (principal); I65.22 Occlusion and stenosis of left carotid artery
CPT/HCPCS: 93880

== ENCOUNTER 2022-02-24 20:00 | Outpatient (CLI) | payer MEDICARE, SELFPAY | END 2022-02-24 20:01 | disposition home or self-care (01) | LOC: SLEEP 02-25 05:38 | PROVIDERS: PCP Physician Assistant; Visit Provider Internal Medicine Pulmonary Disease | DX: G47.33 Obstructive sleep apnea (adult) (pediatric) (principal) | CPT/HCPCS: 95811 ==